=== PATIENT | female | born 1975 | race Caucasian/White ===

== ENCOUNTER → 2016-04-11 | Outpatient (CLI) | payer MEDICARE, MEDICAID ==
[~2016-04-11] MED LIST: ALPR0.25 PO; CHOL20007 PO; FOLI1TAB6 PO; HYDR-3682 PO; LACT10SO PO; MET50T PO; ONDA4TAB5 PO; PANT40TA2 PO; PHYT100T PO; PROP60CA8 PO; TAMO20TA5 PO
[2016-04-11 09:13] LABS: DEFINITIVE VIEW TRANSMISSION
[2016-04-11 09:28] LABS: Hematocrit 24.4 % (36.0-46.0); Hemoglobin 7.8 g/dL (12.2-16.2); Mean Corpuscular Hemoglobin 30.4 pg (28.0-32.0); Mean Corpuscular Hgb Conc. 32.1 g/dL (32.0-36.0); Mean Corpuscular Volume 94.8 fL (80.0-100.0); Mean Platelet Volume 7.4 fL (7.4-10.4); Platelet Count (auto) 306 10^3/uL (140-450); Red Cell Distribution Width 18.7 % (11.6-16.0); White Blood Cell 5.6 10^3/uL (4.4-10.8)
[2016-04-11 09:30] LABS: Partial Thromboplastin Time 30.3 sec (22.64-33.71)
[2016-04-11 09:34] LABS: Metamyelocytes % 0; Myelocytes % 0; Promyelocytes % 0; Reactive Lymphocytes 0
[2016-04-11 09:50] LABS: INR 1.45 (0.9-1.15); Prothrombin Time 14.9 sec (9.37-12.3)
[2016-04-11 10:46] LABS: Burr Cells FEW; Platelet Estimate Adequate; Schistocytes FEW
== END | disposition home or self-care (01) ==
LOC: LAB 09:01
PROVIDERS: ATTEND Internal Medicine Gastroenterology
DX: Z01.812 Encounter for preprocedural laboratory examination (principal)
CPT/HCPCS: 36415; 84702; 85007; 85027; 85610; 85730

== ENCOUNTER → 2016-04-15 | Day surgery (SDC) | payer MEDICARE, MEDICAID ==
[~2016-04-15] VITALS: Ht 162.6 cm; Wt 61.2 kg
[~2016-04-15] MED LIST changes: -ALPR0.25 PO; -FOLI1TAB6 PO; +LIDOCAINE VISCOUS 2% 15ML UD ONE; -MET50T PO; -ONDA4TAB5 PO; +SODIUM CHLORIDE LOCK 10 ML ONE; -TAMO20TA5 PO; +diphenhdrAMINE HCL 50 MG/1 ML VL ONE
[2016-04-15] MEDS: fentaNYL CITRATE 100 MCG/2 ML VL ONE ×2 (09:26→09:30)
[2016-04-15] MEDS: MIDAZOLAM HCL 5 MG/ML-1ML VIAL ONE ×2 (09:26→09:30)
[2016-04-15 10:08] VITALS: BP 121/77
== END | disposition home or self-care (01) ==
LOC: GI 08:31
PROVIDERS: ATTEND Internal Medicine Gastroenterology
DX: K74.60 Unspecified cirrhosis of liver (principal); I85.10 Secondary esophageal varices without bleeding; K76.6 Portal hypertension; K31.89 Other diseases of stomach and duodenum; Z12.4 Encounter for screening for malignant neoplasm of cervix; F10.99 Alcohol use, unspecified with unspecified alcohol-induced disorder
CPT/HCPCS: 43235; J2250

== ENCOUNTER → 2016-06-06 | Day surgery (SDC) | payer MEDICARE, MEDICAID ==
[2016-05-31 10:59] LABS: DEFINITIVE VIEW TRANSMISSION; Hematocrit 24.3 % (36.0-46.0); Hemoglobin 8.3 g/dL (12.2-16.2); Mean Corpuscular Hemoglobin 29.3 pg (28.0-32.0); Mean Corpuscular Hgb Conc. 33.9 g/dL (32.0-36.0); Mean Corpuscular Volume 86.4 fL (80.0-100.0); Mean Platelet Volume 7.4 fL (7.4-10.4); Platelet Count (auto) 275 10^3/uL (140-450); Red Cell Distribution Width 19.7 % (11.6-16.0); White Blood Cell 5.2 10^3/uL (4.4-10.8)
[2016-05-31 11:03] LABS: Partial Thromboplastin Time 30.6 sec (22.64-33.71)
[2016-05-31 11:08] LABS: INR 1.24 (0.9-1.15); Prothrombin Time 13.4 sec (9.37-12.3)
[2016-05-31 11:34] LABS: Metamyelocytes % 0; Myelocytes % 0; Promyelocytes % 0; Reactive Lymphocytes 0
[2016-05-31 14:27] LABS: Platelet Estimate Adequate
[2016-05-31 14:29] LABS: Anisocytosis Slight; Burr Cells FEW; Ovalocytes FEW; Schistocytes FEW; Tear Drop Cells FEW
[~2016-06-06] MED LIST changes: -LIDOCAINE VISCOUS 2% 15ML UD ONE; +MIDAZOLAM HCL 5 MG/ML-1ML VIAL ONE; +fentaNYL CITRATE 100 MCG/2 ML VL ONE
[2016-06-06] MEDS: MIDAZOLAM HCL 5 MG/ML-1ML VIAL ONE ×3 (10:30→10:40)
[2016-06-06] MEDS: fentaNYL CITRATE 100 MCG/2 ML VL ONE ×3 (10:30→10:40)
[2016-06-06 11:50] VITALS: BP 115/76
== END | disposition home or self-care (01) ==
LOC: GI 09:39
PROVIDERS: ATTEND Internal Medicine Gastroenterology
DX: K63.5 Polyp of colon (principal); I86.8 Varicose veins of other specified sites
CPT/HCPCS: 36415; 45380; 45385; 84702; 85007; 85027; 85610; 85730; J2250

== ENCOUNTER 2016-09-13 08:29 | Day surgery (SDC) | payer MEDICARE, MEDICAID ==
[2016-09-10 12:54] LABS: CONDITION Y; DEFINITIVE SEE PRINTOUT; Hematocrit 22.5 % (36.0-46.0); Hemoglobin 8.1 g/dL (12.2-16.2); Mean Corpuscular Hemoglobin 38.4 pg (28.0-32.0); Mean Corpuscular Hgb Conc. 35.9 g/dL (32.0-36.0); Mean Corpuscular Volume 106.8 fL (80.0-100.0); Platelet Count (auto) 163 10^3/uL (140-450); Red Cell Distribution Width 18.5 % (11.6-16.0); SUSPECT SEE PRINTOUT; White Blood Cell 4.8 10^3/uL (4.4-10.8)
[2016-09-10 13:09] LABS: Albumin 3.4 g/dL (3.4-5.0); BUN/Creatinine Ratio 7.1; Calcium 8.3 mg/dL (8.5-10.1); Metamyelocytes % 0; Myelocytes % 0; Promyelocytes % 0; Reactive Lymphocytes 0
[2016-09-10 13:11] LABS: Bilirubin, Total 9.6 mg/dL (0.2-1.0); Total Protein 7.8 g/dL (6.4-8.2)
[2016-09-10 13:24] LABS: INR 1.35 (0.9-1.15)
[2016-09-10 13:41] LABS: Prothrombin Time 14.8 sec (9.37-12.3)
[2016-09-10 14:36] LABS: Anisocytosis Moderate; Hypochromia Moderate; Macrocytosis Slight; Poikilocytosis Slight
[2016-09-10 14:37] LABS: Burr Cells MODERATE
[2016-09-10 14:38] LABS: Platelet Estimate Adequate
[~2016-09-13] VITALS: Ht 162.6 cm; Wt 55.8 kg
[~2016-09-13 08:29] MED LIST changes: -CHOL20007 PO; +FURO20TA3 PO; -LACT10SO PO; +LACT10SO3 PO; -MIDAZOLAM HCL 5 MG/ML-1ML VIAL ONE; -PHYT100T PO; -SODIUM CHLORIDE LOCK 10 ML ONE; -diphenhdrAMINE HCL 50 MG/1 ML VL ONE; -fentaNYL CITRATE 100 MCG/2 ML VL ONE
[2016-09-13] MEDS ORDERED: SODIUM CHLORIDE LOCK 10 ML ONE (09:08)
[2016-09-13] MEDS ORDERED: diphenhdrAMINE HCL 50 MG/1 ML VL ONE (09:09)
[2016-09-13] MEDS: fentaNYL CITRATE 100 MCG/2 ML VL ONE ×3 (10:01→10:09)
[2016-09-13] MEDS: MIDAZOLAM HCL 5 MG/ML-1ML VIAL ONE ×3 (10:01→10:09)
[2016-09-13 10:55] VITALS: BP 139/58
== END 2016-09-13 11:00 | disposition home or self-care (01) ==
LOC: GI 08:29
PROVIDERS: ATTEND Internal Medicine Gastroenterology
DX: Z12.11 Encounter for screening for malignant neoplasm of colon (principal); K64.8 Other hemorrhoids; Z90.11 Acquired absence of right breast and nipple; C50.911 Malignant neoplasm of unspecified site of right female breast; F10.99 Alcohol use, unspecified with unspecified alcohol-induced disorder
CPT/HCPCS: 36415; 80053; 82105; 84702; 85007; 85027; 85610; G0121; J1200; J2250; J3010; J7030

== ENCOUNTER 2017-04-04 16:17 | Inpatient (IN) | payer MEDICARE, MEDICAID ==
[~2017-04-04] VITALS: Ht 162.6 cm; Wt 74.7 kg
[~2017-04-04 16:17] MED LIST changes: +AMOX500C2 PO; -FURO20TA3 PO; -LACT10SO3 PO
[2017-04-04 17:20] LABS: BUN/Creatinine Ratio 17.3; Potassium 4.5 mmol/L (3.5-5.1)
[2017-04-04 17:21] LABS: Albumin 2.8 g/dL (3.4-5.0); Calcium 8.6 mg/dL (8.5-10.1)
[2017-04-04 17:23] LABS: Bilirubin, Total 7.4 mg/dL (0.2-1.0); Total Protein 6.4 g/dL (6.4-8.2)
[2017-04-04 17:27] LABS: White Blood Cell 7.6 10^3/uL (4.4-10.8)
[2017-04-04 17:28] LABS: Hematocrit 14.2 % (36.0-46.0); Mean Corpuscular Hemoglobin 40.8 pg (28.0-32.0); Mean Corpuscular Hgb Conc. 34.4 g/dL (32.0-36.0); Mean Corpuscular Volume 118.5 fL (80.0-100.0); Red Blood Cells 1.19 10^6/uL (4.0-5.20)
[2017-04-04 17:31] LABS: INR 1.17 (0.9-1.15); Prothrombin Time 12.8 sec (9.37-12.3); Red Cell Distribution Width 23.9 % (11.8-14.3)
[2017-04-04 17:36] LABS: Hemoglobin 4.9 g/dL (12.2-16.2)
[2017-04-04 17:37] LABS: Band Neutrophils % (manual) 0
[2017-04-04 17:38] LABS: Basophils % (manual) 0 (0.0-2.0); Blast Cells 0; Myelocytes % 0; Promyelocytes % 0; Reactive Lymphocytes 0
[2017-04-04 17:55] LABS: Eosinophils % (manual) 4 (0-7); Lymphocytes % (manual) 18 (10.0-50.0); Metamyelocytes % 1; Monocytes % (manual) 7 (0-12)
[2017-04-04 17:57] LABS: Platelet Count (auto) 134 10^3/uL (140-450)
[2017-04-04] MEDS ORDERED: LEVOFLOXACIN 500MG 100 ML IV ONE (18:45)
[2017-04-04] MEDS ORDERED: PANTOPRAZOLE 40 MG/10 ML VIAL IV ONE (18:45)
[2017-04-04] MEDS ORDERED: TEMAZEPAM 15 MG CAP PO PRN (18:45)
[2017-04-04] MEDS ORDERED: LORazepam 0.5 MG TAB PO PRN (18:45)
[2017-04-04] MEDS ORDERED: MORPHINE SULFATE 4 MG/ML SYR/VIAL IV PRN (18:45)
[2017-04-04] MEDS ORDERED: NITROGLYCERIN 0.4 MG SL TAB SL PRN (18:45)
[2017-04-04] MEDS: PROMETHAZINE HCL 25 MG/ML 1ML IV PRN (20:08)
[2017-04-04] MEDS: SODIUM CHLORIDE 0.9% 1,000 ML IV SCH (20:46)
[2017-04-04 21:25] VITALS: BP 110/57
[2017-04-04 21:40] VITALS: BP 98/58
[2017-04-04] MEDS: metroNIDAZOLE 500MG/100ML 100 ML IV SCH (22:00)
[2017-04-04 23:13] VITALS: BP 101/59
[2017-04-04 23:50] VITALS: BP 101/59
[2017-04-05] VITALS (11 sets, daily range): BP systolic 101–131; BP diastolic 46–76
[2017-04-05] MEDS ORDERED: diphenhdrAMINE HCL 50 MG/1 ML VL ONE (00:12)
[2017-04-05] MEDS ORDERED: diphenhdrAMINE HCL 50 MG/1 ML VL IV ONE ×2 (00:15→07:45)
[2017-04-05] MEDS: MORPHINE SULFATE 4 MG/ML SYR/VIAL IV PRN ×3 (02:01→22:36)
[2017-04-05] MEDS: PROMETHAZINE HCL 25 MG/ML 1ML IV PRN ×3 (02:02→22:36)
[2017-04-05] MEDS: SODIUM CHLORIDE 0.9% 1,000 ML IV SCH ×3 (02:45→18:44)
[2017-04-05 05:07] LABS: Hematocrit 19.3 % (36.0-46.0)
[2017-04-05 05:18] LABS: Hemoglobin 6.7 g/dL (12.2-16.2)
[2017-04-05] MEDS: metroNIDAZOLE 500MG/100ML 100 ML IV SCH ×3 (07:14→22:13)
[2017-04-05 10:52] LABS: INR 1.23 (0.9-1.15); Partial Thromboplastin Time 29.6 sec (22.64-33.71); Prothrombin Time 13.4 sec (9.37-12.3)
[2017-04-05] MEDS: PANTOPRAZOLE 40 MG/10 ML VIAL IV SCH (11:34)
[2017-04-05 12:19] LABS: Basophils # (auto) 0 uL; Eosinophils # (auto) 0.1 uL; Eosinophils % (auto) 3.7 % (0.0-7.0); Hematocrit 21.7 % (36.0-46.0); Hemoglobin 7.5 g/dL (12.2-16.2); Lymphocytes # (auto) 0.5 uL; Neutrophils # (auto) 2.5 uL
[2017-04-05 12:21] LABS: Basophils % (auto) 1.2 % (0.0-2.0); Lymphocytes % (auto) 14.3 % (10.0-50.0); Mean Corpuscular Hemoglobin 35.7 pg (28.0-32.0); Mean Corpuscular Hgb Conc. 34.6 g/dL (32.0-36.0); Mean Corpuscular Volume 103.1 fL (80.0-100.0); Monocytes # (auto) 0.5 uL; Monocytes % (auto) 12.3 % (0.0-12.0); Neutrophils % (auto) 68.5 % (37.0-80.0); Nucleated Red Blood Cells % 0.1 %; Platelet Count (auto) 97 10^3/uL (140-450); White Blood Cell 3.7 10^3/uL (4.4-10.8)
[2017-04-05] MEDS: LEVOFLOXACIN 500MG 100 ML IV SCH (20:20)
[2017-04-05 21:16] LABS: Basophils # (auto) 0 uL; Basophils % (auto) 0.4 % (0.0-2.0); Eosinophils # (auto) 0.2 uL; Eosinophils % (auto) 4.2 % (0.0-7.0); Hematocrit 30.1 % (36.0-46.0); Hemoglobin 10.6 g/dL (12.2-16.2); Lymphocytes # (auto) 0.3 uL; Lymphocytes % (auto) 6.4 % (10.0-50.0); Mean Corpuscular Hemoglobin 34.3 pg (28.0-32.0); Mean Corpuscular Volume 97.8 fL (80.0-100.0); Monocytes # (auto) 0.6 uL; Monocytes % (auto) 12.1 % (0.0-12.0); Neutrophils # (auto) 3.7 uL; Neutrophils % (auto) 76.9 % (37.0-80.0); Nucleated Red Blood Cells % 0.6 %; Platelet Count (auto) 102 10^3/uL (140-450); Red Blood Cells 3.08 10^6/uL (4.0-5.20); White Blood Cell 4.9 10^3/uL (4.4-10.8)
[2017-04-05 21:24] LABS: Red Cell Distribution Width 20.9 % (11.8-14.3)
[2017-04-06] VITALS (12 sets, daily range): BP systolic 119–139; BP diastolic 73–97
[2017-04-06] MEDS: SODIUM CHLORIDE 0.9% 1,000 ML IV SCH ×3 (02:45→18:45)
[2017-04-06] MEDS: metroNIDAZOLE 500MG/100ML 100 ML IV SCH ×3 (05:42→22:20)
[2017-04-06 06:38] LABS: Hemoglobin 8.9 g/dL (12.2-16.2); Red Blood Cells 2.53 10^6/uL (4.0-5.20); White Blood Cell 3.7 10^3/uL (4.4-10.8)
[2017-04-06 06:41] LABS: Hematocrit 25.1 % (36.0-46.0); Mean Corpuscular Hemoglobin 35.1 pg (28.0-32.0); Mean Corpuscular Hgb Conc. 35.3 g/dL (32.0-36.0); Mean Corpuscular Volume 99.4 fL (80.0-100.0)
[2017-04-06 06:42] LABS: Red Cell Distribution Width 21.8 % (11.8-14.3)
[2017-04-06 06:43] LABS: Platelet Count (auto) 87 10^3/uL (140-450)
[2017-04-06 06:44] LABS: Band Neutrophils % (manual) 0; Basophils % (manual) 0 (0.0-2.0); Blast Cells 0; Metamyelocytes % 0; Myelocytes % 0; Promyelocytes % 0; Reactive Lymphocytes 0
[2017-04-06 08:34] LABS: BUN/Creatinine Ratio 15.9; Calcium 7.2 mg/dL (8.5-10.1); Potassium 4.2 mmol/L (3.5-5.1)
[2017-04-06 09:28] LABS: Eosinophils % (manual) 6 (0-7); Lymphocytes % (manual) 11 (10.0-50.0); Monocytes % (manual) 10 (0-12)
[2017-04-06] MEDS: PROMETHAZINE HCL 25 MG/ML 1ML IV PRN ×2 (09:56→20:42)
[2017-04-06] MEDS: PANTOPRAZOLE 40 MG/10 ML VIAL IV SCH ×2 (09:56→22:20)
[2017-04-06] MEDS: MORPHINE SULFATE 4 MG/ML SYR/VIAL IV PRN ×2 (09:56→20:43)
[2017-04-06] MEDS ORDERED: OCTREOTIDE ACETATE 100 MCG in SODIUM CHL 0.9% 50 ML IV ONE (10:45)
[2017-04-06] MEDS ORDERED: diphenhdrAMINE HCL 50 MG/1 ML VL IV ONE (11:15)
[2017-04-06] MEDS: OCTREOTIDE ACETATE 500 MCG in SODIUM CHL 0.9% 99 ML IV SCH ×2 (11:30→21:50)
[2017-04-06] MEDS: LEVOFLOXACIN 500MG 100 ML IV SCH (19:58)
[2017-04-06] MEDS ORDERED: FURO20TA PO (21:48)
[2017-04-06] MEDS ORDERED: RIFA550T PO (21:48)
[2017-04-06] MEDS ORDERED: SPIR50TA23 PO (21:48)
[2017-04-06] MEDS ORDERED: FER325T PO (21:48)
[2017-04-07] VITALS (48 sets, daily range): BP systolic 103–134; BP diastolic 58–92
[2017-04-07] MEDS: SODIUM CHLORIDE 0.9% 1,000 ML IV SCH ×2 (02:45→10:03)
[2017-04-07 04:01] LABS: Basophils # (auto) 0.1 uL; Eosinophils # (auto) 0.2 uL
[2017-04-07 04:03] LABS: Basophils % (auto) 1.6 % (0.0-2.0); Eosinophils % (auto) 4.1 % (0.0-7.0); Hematocrit 28.2 % (36.0-46.0); Lymphocytes # (auto) 0.8 uL; Lymphocytes % (auto) 20.1 % (10.0-50.0); Mean Corpuscular Hemoglobin 35.7 pg (28.0-32.0); Mean Corpuscular Hgb Conc. 35.4 g/dL (32.0-36.0); Mean Corpuscular Volume 100.7 fL (80.0-100.0); Monocytes # (auto) 0.5 uL; Monocytes % (auto) 13.2 % (0.0-12.0); Neutrophils # (auto) 2.5 uL; Platelet Count (auto) 92 10^3/uL (140-450); White Blood Cell 4.1 10^3/uL (4.4-10.8)
[2017-04-07 04:22] LABS: BUN/Creatinine Ratio 15.2; Calcium 7.8 mg/dL (8.5-10.1)
[2017-04-07 04:28] LABS: Red Cell Distribution Width 22.8 % (11.8-14.3)
[2017-04-07] MEDS: metroNIDAZOLE 500MG/100ML 100 ML IV SCH ×3 (05:49→21:43)
[2017-04-07] MEDS: OCTREOTIDE ACETATE 500 MCG in SODIUM CHL 0.9% 99 ML IV SCH ×2 (06:45→08:30)
[2017-04-07] MEDS ORDERED: SODIUM CHLORIDE LOCK 10 ML ONE (08:08)
[2017-04-07] MEDS ORDERED: LIDOCAINE VISCOUS 2% 15ML UD ONE (08:08)
[2017-04-07] MEDS ORDERED: NALOXONE HCL 0.4 MG/ML VIAL ONE (08:08)
[2017-04-07] MEDS ORDERED: BENZOCAINE (DENTAL) 20 % SPRAY 60ML MT ONE (08:08)
[2017-04-07] MEDS ORDERED: FLUMAZENIL 0.1 MG/ML INJ 10ML MDV IV ONE (08:08)
[2017-04-07] MEDS ORDERED: fentaNYL CITRATE 100 MCG/2 ML VL ONE (08:09)
[2017-04-07] MEDS ORDERED: diphenhdrAMINE HCL 50 MG/1 ML VL ONE (08:09)
[2017-04-07] MEDS ORDERED: MIDAZOLAM HCL 5 MG/ML-1ML VIAL ONE (08:09)
[2017-04-07] MEDS ORDERED: EPINEPHrine HCL 1 MG/10 ML SYRG ONE (08:50)
[2017-04-07] MEDS: PANTOPRAZOLE 40 MG/10 ML VIAL IV SCH (10:03)
[2017-04-07] MEDS: D5W/SOD CHL 0.45% 1,000 ML IV SCH ×2 (10:15→18:02)
[2017-04-07] MEDS ORDERED: LIDOCAINE VISCOUS 2% 15ML UD MT ONE (10:42)
[2017-04-07] MEDS ORDERED: MIDAZOLAM HCL 5 MG/ML-1ML VIAL IV ONE (10:45)
[2017-04-07] MEDS ORDERED: fentaNYL CITRATE 100 MCG/2 ML VL IV ONE (10:45)
[2017-04-07] MEDS ORDERED: diphenhdrAMINE HCL 50 MG/1 ML VL IV ONE (10:47)
[2017-04-07] MEDS: PROMETHAZINE HCL 25 MG/ML 1ML IV PRN ×2 (13:39→20:24)
[2017-04-07] MEDS: MORPHINE SULFATE 4 MG/ML SYR/VIAL IV PRN ×2 (13:43→20:24)
[2017-04-07] MEDS ORDERED: LACT10SO66 PO (15:05)
[2017-04-07] MEDS: diphenhdrAMINE HCL 25 MG CAP PO PRN ×2 (16:15→22:19)
[2017-04-07] MEDS: SPIRONOLACTONE 25 MG TAB PO SCH (18:02)
[2017-04-07] MEDS: FERROUS SULFATE 325 MG TAB PO SCH (18:02)
[2017-04-07] MEDS: LEVOFLOXACIN 500MG 100 ML IV SCH (19:52)
[2017-04-07] MEDS: PROPRANOLOL HCL 20 MG TAB PO SCH (21:43)
[2017-04-07] MEDS: RIFAXIMIN 550 MG TAB PO SCH (21:44)
[2017-04-07] MEDS: LACTULOSE 20Gm/30ML SOLN PO SCH (21:44)
[2017-04-07] MEDS ORDERED: PATIENTS OWN MEDICATION (Rifaximin 550 MG) PO SCH (22:00)
[2017-04-08] VITALS (21 sets, daily range): BP systolic 106–125; BP diastolic 54–84
[2017-04-08] MEDS: D5W/SOD CHL 0.45% 1,000 ML IV SCH (02:15)
[2017-04-08] MEDS: metroNIDAZOLE 500MG/100ML 100 ML IV SCH ×3 (05:45→21:32)
[2017-04-08] MEDS: SPIRONOLACTONE 25 MG TAB PO SCH ×2 (05:45→17:42)
[2017-04-08] MEDS: MORPHINE SULFATE 4 MG/ML SYR/VIAL IV PRN ×3 (05:58→20:19)
[2017-04-08] MEDS: PROMETHAZINE HCL 25 MG/ML 1ML IV PRN ×3 (05:58→20:20)
[2017-04-08] MEDS: FERROUS SULFATE 325 MG TAB PO SCH ×2 (08:00→17:41)
[2017-04-08 08:58] LABS: Basophils # (auto) 0.1 uL; Hemoglobin 10.4 g/dL (12.2-16.2)
[2017-04-08 09:00] LABS: Basophils % (auto) 2.2 % (0.0-2.0); Eosinophils # (auto) 0.2 uL; Eosinophils % (auto) 3.3 % (0.0-7.0); Hematocrit 30.6 % (36.0-46.0); Lymphocytes # (auto) 0.4 uL; Lymphocytes % (auto) 7.9 % (10.0-50.0); Mean Corpuscular Hemoglobin 34.8 pg (28.0-32.0); Mean Corpuscular Hgb Conc. 34.1 g/dL (32.0-36.0); Mean Corpuscular Volume 102.3 fL (80.0-100.0); Monocytes # (auto) 0.7 uL; Neutrophils # (auto) 3.4 uL; Neutrophils % (auto) 72.6 % (37.0-80.0); Nucleated Red Blood Cells % 0.1 %; Platelet Count (auto) 90 10^3/uL (140-450); Red Blood Cells 2.99 10^6/uL (4.0-5.20); White Blood Cell 4.7 10^3/uL (4.4-10.8)
[2017-04-08 09:05] LABS: Red Cell Distribution Width 24.4 % (11.8-14.3)
[2017-04-08 09:22] LABS: Albumin 2.1 g/dL (3.4-5.0); Bilirubin, Total 8.8 mg/dL (0.2-1.0); Calcium 7.5 mg/dL (8.5-10.1); Potassium 4.4 mmol/L (3.5-5.1); Total Protein 5.7 g/dL (6.4-8.2)
[2017-04-08] MEDS: LACTULOSE 20Gm/30ML SOLN PO SCH ×2 (09:51→21:29)
[2017-04-08] MEDS: PROPRANOLOL HCL 20 MG TAB PO SCH ×2 (09:51→21:31)
[2017-04-08] MEDS: PANTOPRAZOLE 40 MG TAB PO SCH (09:51)
[2017-04-08] MEDS: RIFAXIMIN 550 MG TAB PO SCH ×2 (09:51→21:30)
[2017-04-08] MEDS: SODIUM CITR/CITRIC ACID ORAL SOLN 30 ML PO SCH ×3 (11:11→21:32)
[2017-04-08 11:44] LABS: Urine Bacteria FEW /hpf (None Seen); Urine Blood Negative /uL (Negative); Urine Specific Gravity 1.014 (1.001-1.035); Urine WBC 6 /hpf (0 - 5)
[2017-04-08 11:55] LABS: Creatinine, Urine 84 mg/dL (30.0-125.0); Sodium Urine 25 mmol/L (40-220)
[2017-04-08] MEDS: LEVOFLOXACIN 500MG 100 ML IV SCH (20:20)
[2017-04-08] MEDS: diphenhdrAMINE HCL 25 MG CAP PO PRN (21:30)
[2017-04-09] MEDS: metroNIDAZOLE 500MG/100ML 100 ML IV SCH (05:18)
[2017-04-09] MEDS: SPIRONOLACTONE 25 MG TAB PO SCH (05:18)
[2017-04-09] MEDS: MORPHINE SULFATE 4 MG/ML SYR/VIAL IV PRN (05:19)
[2017-04-09] MEDS: PROMETHAZINE HCL 25 MG/ML 1ML IV PRN (05:19)
[2017-04-09 05:32] VITALS: BP 115/70
[2017-04-09] MEDS: SODIUM CITR/CITRIC ACID ORAL SOLN 30 ML PO SCH (05:35)
[2017-04-09 06:00] LABS: White Blood Cell 5.2 10^3/uL (4.4-10.8)
[2017-04-09 06:04] LABS: Hematocrit 27.6 % (36.0-46.0); Hemoglobin 9.5 g/dL (12.2-16.2); Mean Corpuscular Hgb Conc. 34.6 g/dL (32.0-36.0); Mean Corpuscular Volume 101.1 fL (80.0-100.0); Platelet Count (auto) 83 10^3/uL (140-450); Red Blood Cells 2.73 10^6/uL (4.0-5.20)
[2017-04-09 06:07] LABS: BUN/Creatinine Ratio 17.2; Calcium 7.5 mg/dL (8.5-10.1); Phosphorus 2.3 mg/dL (2.5-4.90); Potassium 4.7 mmol/L (3.5-5.1)
[2017-04-09 06:18] LABS: Band Neutrophils % (manual) 0; Basophils % (manual) 0 (0.0-2.0); Blast Cells 0; Eosinophils % (manual) 0 (0-7); Metamyelocytes % 0; Myelocytes % 0; Promyelocytes % 0; Reactive Lymphocytes 0
[2017-04-09 09:00] VITALS: BP 111/66
[2017-04-09] MEDS: FERROUS SULFATE 325 MG TAB PO SCH (09:00)
[2017-04-09 09:06] LABS: Lymphocytes % (manual) 12 (10.0-50.0); Monocytes % (manual) 9 (0-12)
[2017-04-09] MEDS: PROPRANOLOL HCL 20 MG TAB PO SCH (09:19)
[2017-04-09] MEDS: PANTOPRAZOLE 40 MG TAB PO SCH (09:20)
[2017-04-09] MEDS: RIFAXIMIN 550 MG TAB PO SCH (09:20)
[2017-04-09] MEDS: LACTULOSE 20Gm/30ML SOLN PO SCH (09:20)
[2017-04-09] MEDS ORDERED: SODIUM CHL 0.9% IV ONE (11:00)
[2017-04-09] MEDS ORDERED: SODIUM PHOSPHATES IV ONE (11:00)
[2017-04-09 12:43] VITALS: BP 107/71
[2017-04-09 13:00] VITALS: BP 107/71
[2017-04-09] MEDS ORDERED: PRO-STAT 64 30ML PO SCH (18:00)
== END 2017-04-09 13:50 | disposition home or self-care (01) | DRG 377 ==
LOC: EDBD 16:17 → ER 16:17 → TELE 16:18 → ICU WEST 04-06 18:35 → TELE-WESTW 04-08 11:40
PROVIDERS: ADMIT Internal Medicine; ATTEND Internal Medicine
PROC: 30233N1 Transfusion of Nonautologous Red Blood Cells into Peripheral Vein, Percutaneous Approach (ICD-10-PCS; principal; 2017-04-04)
PROC: 0DJ08ZZ Inspection of Upper Intestinal Tract, Via Natural or Artificial Opening Endoscopic (ICD-10-PCS; 2017-04-07)
PROC: 0W9G30Z Drainage of Peritoneal Cavity with Drainage Device, Percutaneous Approach (ICD-10-PCS; 2017-04-07)
DX: K62.5 Hemorrhage of anus and rectum (principal); N17.0 Acute kidney failure with tubular necrosis; Z76.82 Awaiting organ transplant status; E87.4 Mixed disorder of acid-base balance; Z94.4 Liver transplant status; E44.0 Moderate protein-calorie malnutrition; I85.00 Esophageal varices without bleeding; N18.3 Chronic kidney disease, stage 3 (moderate); D59.1 Other autoimmune hemolytic anemias; K76.6 Portal hypertension; K72.90 Hepatic failure, unspecified without coma; K31.89 Other diseases of stomach and duodenum; K70.31 Alcoholic cirrhosis of liver with ascites; I12.9 Hypertensive chronic kidney disease with stage 1 through stage 4 chronic kidney disease, or unspecified chronic kidney disease; E83.39 Other disorders of phosphorus metabolism; K21.9 Gastro-esophageal reflux disease without esophagitis; Z82.3 Family history of stroke; Z82.49 Family history of ischemic heart disease and other diseases of the circulatory system; Z85.3 Personal history of malignant neoplasm of breast; Z86.010 Personal history of colon polyps; Z90.11 Acquired absence of right breast and nipple; Z68.28 Body mass index [BMI] 28.0-28.9, adult
CPT/HCPCS: 10022; 36415; 36430; 36600; 49083; 71045; 74176; 76700; 76942; 80048; 80053; 81001; 82140; 82570; 82805; 83605; 84100; 84300; 84702; 85007; 85014; 85018; 85025; 85027; 85045; 85610; 85730; 86850; 86900; 86901; 86920; 87081; 93005; 96365; 96367; 96375; C9113; J1956; J2250; J3490

== ENCOUNTER 2017-04-26 15:16 | Inpatient (IN) | payer MEDICARE, MEDICAID ==
[~2017-04-26] VITALS: Ht 167.6 cm; Wt 65.4 kg
[~2017-04-26 15:16] MED LIST changes: -AMOX500C2 PO; +FER325T PO; +FURO20TA PO; -HYDR-3682 PO; +LACT10SO66 PO; +RIFA550T PO; +SPIR50TA23 PO
[2017-04-26] MEDS ORDERED: SODIUM CHLORIDE 0.9% 1,000 ML IV ONE (16:26)
[2017-04-26] MEDS ORDERED: LACTULOSE 20Gm/30ML SOLN PO ONE (16:30)
[2017-04-26] MEDS ORDERED: FUROSEMIDE 40 MG/4 ML VIAL IV ONE (16:30)
[2017-04-26] MEDS ORDERED: SPIRONOLACTONE 25 MG TAB PO ONE (16:30)
[2017-04-26 17:32] LABS: BUN/Creatinine Ratio 12.4; Calcium 7.9 mg/dL (8.5-10.1); Magnesium 1.1 mg/dL (1.6-2.6); Potassium 5.2 mmol/L (3.5-5.1)
[2017-04-26 17:33] LABS: INR 1.41 (0.9-1.15); Partial Thromboplastin Time 23.8 sec (22.64-33.71); Prothrombin Time 15.4 sec (9.37-12.3)
[2017-04-26 17:35] LABS: Bilirubin, Total 8.9 mg/dL (0.2-1.0); Total Protein 7.3 g/dL (6.4-8.2)
[2017-04-26 17:47] LABS: Hemoglobin 8.1 g/dL (12.2-16.2)
[2017-04-26 17:49] LABS: Hematocrit 23.3 % (36.0-46.0); Mean Corpuscular Hemoglobin 37.3 pg (28.0-32.0); Mean Corpuscular Hgb Conc. 34.5 g/dL (32.0-36.0); Mean Corpuscular Volume 108.1 fL (80.0-100.0); Platelet Count (auto) 136 10^3/uL (140-450); Red Blood Cells 2.16 10^6/uL (4.0-5.20); White Blood Cell 6.4 10^3/uL (4.4-10.8)
[2017-04-26 17:55] LABS: Red Cell Distribution Width 24.2 % (11.8-14.3)
[2017-04-26 18:00] LABS: Basophils % (manual) 0 (0.0-2.0); Blast Cells 0; Eosinophils % (manual) 0 (0-7); Metamyelocytes % 0; Myelocytes % 0; Promyelocytes % 0; Reactive Lymphocytes 0
[2017-04-26] MEDS ORDERED: MORPHINE SULFATE 4 MG/ML SYR/VIAL IV PRN (18:00)
[2017-04-26] MEDS ORDERED: cefTRIAXone 1GM/10ml IVPUSH 10 ML IV ONE (18:00)
[2017-04-26] MEDS ORDERED: LORazepam 0.5 MG TAB PO PRN (18:00)
[2017-04-26] MEDS ORDERED: NITROGLYCERIN 0.4 MG SL TAB SL PRN (18:00)
[2017-04-26] MEDS ORDERED: SODIUM POLYSTYRENE SULF 15GM/60ML SUSP PO ONE (18:00)
[2017-04-26] MEDS ORDERED: PANTOPRAZOLE 40 MG TAB PO SCH (18:15)
[2017-04-26] MEDS ORDERED: ONDANSETRON HCL 4 MG/2 ML VIAL IV ONE (18:30)
[2017-04-26] MEDS: FERROUS SULFATE 325 MG TAB PO SCH (18:48)
[2017-04-26 19:03] LABS: Band Neutrophils % (manual) 1; Lymphocytes % (manual) 6 (10.0-50.0); Monocytes % (manual) 7 (0-12)
[2017-04-26] MEDS ORDERED: PANTOPRAZOLE 40 MG/10 ML VIAL IV ONE (20:00)
[2017-04-26] MEDS: PROPRANOLOL HCL 20 MG PO SCH (22:00)
[2017-04-26] MEDS: MORPHINE SULFATE 4 MG/ML SYR/VIAL IV PRN (22:30)
[2017-04-27] MEDS: RIFAXIMIN 550 MG TAB PO SCH ×3 (00:03→22:00)
[2017-04-27] MEDS: FUROSEMIDE 40 MG/4 ML VIAL IV SCH ×4 (00:03→22:15)
[2017-04-27 00:45] LABS: Hematocrit 20.6 % (36.0-46.0); Hemoglobin 7.2 g/dL (12.2-16.2)
[2017-04-27 01:53] VITALS: BP 112/74
[2017-04-27] MEDS: MORPHINE SULFATE 4 MG/ML SYR/VIAL IV PRN ×3 (04:45→21:48)
[2017-04-27] MEDS: LACTULOSE 20Gm/30ML SOLN PO SCH ×4 (05:07→17:23)
[2017-04-27 05:44] VITALS: BP 123/78
[2017-04-27] MEDS ORDERED: FUROSEMIDE 40 MG/4 ML VIAL IV SCH (06:00)
[2017-04-27 06:42] LABS: Hemoglobin 7.3 g/dL (12.2-16.2); White Blood Cell 4.8 10^3/uL (4.4-10.8)
[2017-04-27 06:52] LABS: Hematocrit 20.7 % (36.0-46.0); Mean Corpuscular Hemoglobin 38.1 pg (28.0-32.0); Mean Corpuscular Hgb Conc. 35.4 g/dL (32.0-36.0); Mean Corpuscular Volume 107.6 fL (80.0-100.0); Platelet Count (auto) 127 10^3/uL (140-450); Red Blood Cells 1.92 10^6/uL (4.0-5.20)
[2017-04-27 06:57] LABS: Band Neutrophils % (manual) 0; Basophils % (manual) 0 (0.0-2.0); Blast Cells 0; Metamyelocytes % 0; Myelocytes % 0; Promyelocytes % 0; Reactive Lymphocytes 0
[2017-04-27 07:00] LABS: Albumin 2.6 g/dL (3.4-5.0); BUN/Creatinine Ratio 8.8; Bilirubin, Total 8.3 mg/dL (0.2-1.0); Calcium 7.9 mg/dL (8.5-10.1); Potassium 3.7 mmol/L (3.5-5.1); Total Protein 6.7 g/dL (6.4-8.2)
[2017-04-27 07:30] LABS: Cholesterol 324 mg/dL (< 200); HDL Cholesterol 177 mg/dL (40-59); LDL Cholesterol 96 mg/dL (< 100); Triglycerides 143 mg/dL (< 150)
[2017-04-27 08:05] LABS: Eosinophils % (manual) 1 (0-7); Lymphocytes % (manual) 8 (10.0-50.0); Monocytes % (manual) 11 (0-12)
[2017-04-27 08:57] VITALS: BP 116/69
[2017-04-27] MEDS: FERROUS SULFATE 325 MG TAB PO SCH ×2 (09:17→17:22)
[2017-04-27] MEDS: PANTOPRAZOLE 40 MG/10 ML VIAL IV SCH ×2 (09:17→21:47)
[2017-04-27] MEDS: cefTRIAXone 1GM/10ml IVPUSH 10 ML IV SCH (09:18)
[2017-04-27] MEDS: PROPRANOLOL HCL 20 MG PO SCH ×2 (09:19→22:00)
[2017-04-27] MEDS: PROMETHAZINE HCL 25 MG/ML 1ML IV PRN ×2 (09:40→21:49)
[2017-04-27 12:16] LABS: Hemoglobin 7.4 g/dL (12.2-16.2)
[2017-04-27 12:18] LABS: Hematocrit 20.8 % (36.0-46.0)
[2017-04-27 12:46] VITALS: BP 121/72
[2017-04-27 16:57] VITALS: BP 121/75
[2017-04-27 22:00] VITALS: BP 129/76
[2017-04-27] MEDS: TEMAZEPAM 15 MG CAP PO PRN (23:06)
[2017-04-28] VITALS (10 sets, daily range): BP systolic 115–153; BP diastolic 62–80
[2017-04-28] MEDS: LACTULOSE 20Gm/30ML SOLN PO SCH ×4 (05:49→18:35)
[2017-04-28] MEDS: FUROSEMIDE 40 MG/4 ML VIAL IV SCH ×3 (05:49→21:21)
[2017-04-28] MEDS: PROMETHAZINE HCL 25 MG/ML 1ML IV PRN ×3 (05:50→21:22)
[2017-04-28] MEDS: MORPHINE SULFATE 4 MG/ML SYR/VIAL IV PRN ×3 (05:50→21:22)
[2017-04-28 07:05] LABS: Platelet Count (auto) 119 10^3/uL (140-450)
[2017-04-28 07:08] LABS: Hematocrit 19.6 % (36.0-46.0); Mean Corpuscular Hemoglobin 38.7 pg (28.0-32.0); Mean Corpuscular Hgb Conc. 35.9 g/dL (32.0-36.0); Mean Corpuscular Volume 107.9 fL (80.0-100.0); Red Blood Cells 1.82 10^6/uL (4.0-5.20)
[2017-04-28 07:20] LABS: Red Cell Distribution Width 23.2 % (11.8-14.3)
[2017-04-28 07:25] LABS: Band Neutrophils % (manual) 0; Basophils % (manual) 0 (0.0-2.0); Blast Cells 0; Metamyelocytes % 0; Myelocytes % 0; Promyelocytes % 0; Reactive Lymphocytes 0
[2017-04-28 07:27] LABS: Albumin 2.6 g/dL (3.4-5.0); BUN/Creatinine Ratio 8.6; Calcium 7.9 mg/dL (8.5-10.1); Potassium 3.4 mmol/L (3.5-5.1)
[2017-04-28 07:29] LABS: Bilirubin, Total 8.4 mg/dL (0.2-1.0); Total Protein 6.5 g/dL (6.4-8.2)
[2017-04-28 07:41] LABS: Eosinophils % (manual) 2 (0-7); Lymphocytes % (manual) 8 (10.0-50.0); Monocytes % (manual) 5 (0-12)
[2017-04-28] MEDS: cefTRIAXone 1GM/10ml IVPUSH 10 ML IV SCH (09:41)
[2017-04-28] MEDS: FERROUS SULFATE 325 MG TAB PO SCH ×2 (09:41→18:35)
[2017-04-28] MEDS: PROPRANOLOL HCL 20 MG PO SCH ×2 (09:41→21:21)
[2017-04-28] MEDS: PANTOPRAZOLE 40 MG/10 ML VIAL IV SCH ×2 (09:41→21:21)
[2017-04-28] MEDS: RIFAXIMIN 550 MG TAB PO SCH ×2 (10:00→21:20)
[2017-04-28 14:57] LABS: Urine Bacteria NONE SEEN /hpf (None Seen); Urine Blood Negative /uL (Negative); Urine Specific Gravity 1.007 (1.001-1.035); Urine WBC 3 /hpf (0 - 5)
[2017-04-28] MEDS: TEMAZEPAM 15 MG CAP PO PRN (23:08)
[2017-04-29] VITALS (7 sets, daily range): BP systolic 134–148; BP diastolic 65–90
[2017-04-29] MEDS: PROMETHAZINE HCL 25 MG/ML 1ML IV PRN ×2 (03:45→09:51)
[2017-04-29] MEDS: MORPHINE SULFATE 4 MG/ML SYR/VIAL IV PRN ×2 (03:46→09:51)
[2017-04-29] MEDS: LACTULOSE 20Gm/30ML SOLN PO SCH ×4 (06:33→18:00)
[2017-04-29] MEDS: FUROSEMIDE 40 MG/4 ML VIAL IV SCH ×2 (06:34→16:16)
[2017-04-29] MEDS ORDERED: LIDOCAINE VISCOUS 2% 15ML UD ONE (08:15)
[2017-04-29] MEDS ORDERED: SODIUM CHLORIDE LOCK 10 ML ONE (08:15)
[2017-04-29] MEDS ORDERED: MIDAZOLAM HCL 5 MG/ML-1ML VIAL ONE (08:15)
[2017-04-29] MEDS ORDERED: fentaNYL CITRATE 100 MCG/2 ML VL ONE (08:16)
[2017-04-29] MEDS ORDERED: diphenhdrAMINE HCL 50 MG/1 ML VL ONE (08:20)
[2017-04-29 08:30] LABS: Eosinophils # (auto) 0.1 uL
[2017-04-29 08:31] LABS: Basophils # (auto) 0 uL; Eosinophils % (auto) 2.3 % (0.0-7.0); Hematocrit 25.4 % (36.0-46.0); Hemoglobin 8.9 g/dL (12.2-16.2); Lymphocytes # (auto) 1.4 uL; Lymphocytes % (auto) 23.9 % (10.0-50.0); Mean Corpuscular Hemoglobin 35.1 pg (28.0-32.0); Mean Corpuscular Hgb Conc. 35.2 g/dL (32.0-36.0); Mean Corpuscular Volume 99.9 fL (80.0-100.0); Monocytes # (auto) 0.6 uL; Monocytes % (auto) 10.6 % (0.0-12.0); Neutrophils # (auto) 3.6 uL; Neutrophils % (auto) 63.2 % (37.0-80.0); Nucleated Red Blood Cells % 0.2 %; Platelet Count (auto) 100 10^3/uL (140-450); Red Blood Cells 2.54 10^6/uL (4.0-5.20); White Blood Cell 5.7 10^3/uL (4.4-10.8)
[2017-04-29 08:42] LABS: Red Cell Distribution Width 25.9 % (11.8-14.3)
[2017-04-29 08:44] LABS: Albumin 2.6 g/dL (3.4-5.0); BUN/Creatinine Ratio 8.7; Bilirubin, Total 8.3 mg/dL (0.2-1.0); Calcium 7.8 mg/dL (8.5-10.1); Potassium 3.4 mmol/L (3.5-5.1); Total Protein 6.9 g/dL (6.4-8.2)
[2017-04-29] MEDS: cefTRIAXone 1GM/10ml IVPUSH 10 ML IV SCH (09:45)
[2017-04-29] MEDS: PANTOPRAZOLE 40 MG/10 ML VIAL IV SCH (09:45)
[2017-04-29] MEDS: FERROUS SULFATE 325 MG TAB PO SCH ×2 (09:45→18:00)
[2017-04-29] MEDS: RIFAXIMIN 550 MG TAB PO SCH (10:00)
[2017-04-29] MEDS: PROPRANOLOL HCL 20 MG PO SCH (10:00)
[2017-04-29] MEDS ORDERED: PROPRANOLOL HCL 20 MG TAB PO SCH ×2 (14:00)
[2017-04-29] MEDS ORDERED: PANTOPRAZOLE 40 MG TAB PO SCH (22:00)
== END 2017-04-29 13:30 | disposition home or self-care (01) | DRG 432 ==
LOC: ER 15:16 → EDBD 15:16 → TELE 15:17 → TELE-EAST 19:55
PROVIDERS: ADMIT Internal Medicine; ATTEND Family Medicine
PROC: 30233N1 Transfusion of Nonautologous Red Blood Cells into Peripheral Vein, Percutaneous Approach (ICD-10-PCS; principal; 2017-04-28)
PROC: 0W9G3ZZ Drainage of Peritoneal Cavity, Percutaneous Approach (ICD-10-PCS; 2017-04-28)
PROC: 0DJD8ZZ Inspection of Lower Intestinal Tract, Via Natural or Artificial Opening Endoscopic (ICD-10-PCS; 2017-04-29)
DX: K74.60 Unspecified cirrhosis of liver (principal); K85.10 Biliary acute pancreatitis without necrosis or infection; D61.818 Other pancytopenia; K83.1 Obstruction of bile duct; K72.90 Hepatic failure, unspecified without coma; K76.6 Portal hypertension; R18.8 Other ascites; I85.00 Esophageal varices without bleeding; I11.0 Hypertensive heart disease with heart failure; I50.9 Heart failure, unspecified; E83.42 Hypomagnesemia; K80.20 Calculus of gallbladder without cholecystitis without obstruction; D63.8 Anemia in other chronic diseases classified elsewhere; D75.89 Other specified diseases of blood and blood-forming organs; E03.9 Hypothyroidism, unspecified; E78.00 Pure hypercholesterolemia, unspecified; E78.5 Hyperlipidemia, unspecified; K27.9 Peptic ulcer, site unspecified, unspecified as acute or chronic, without hemorrhage or perforation; K31.89 Other diseases of stomach and duodenum; K29.70 Gastritis, unspecified, without bleeding; K76.0 Fatty (change of) liver, not elsewhere classified; Z82.49 Family history of ischemic heart disease and other diseases of the circulatory system; Z85.3 Personal history of malignant neoplasm of breast
CPT/HCPCS: 10022; 36415; 45378; 71045; 74176; 76705; 76942; 80053; 80061; 81001; 82140; 82150; 82270; 83690; 83735; 84443; 85007; 85014; 85018; 85025; 85027; 85045; 85610; 85730; 86850; 86900; 86901; 86920; 87086; 87088; 87186; 93005; 96365; 96375; 96376; C9113; J2250; J2405

== ENCOUNTER 2017-05-17 13:00 | Inpatient (IN) | payer MEDICARE, MEDICAID ==
[2017-05-17] VITALS (8 sets, daily range): BP systolic 113–133; BP diastolic 67–80
[~2017-05-17] VITALS: Ht 162.6 cm; Wt 63.4 kg
[2017-05-17 15:27] LABS: Bilirubin, Total 9.9 mg/dL (0.2-1.0); Calcium 8.5 mg/dL (8.5-10.1); Potassium 4.1 mmol/L (3.5-5.1)
[2017-05-17 15:56] LABS: Mean Corpuscular Volume 114.1 fL (80.0-100.0)
[2017-05-17 15:57] LABS: Mean Corpuscular Hemoglobin 41.8 pg (28.0-32.0); Mean Corpuscular Hgb Conc. 36.7 g/dL (32.0-36.0); Red Blood Cells 1.57 10^6/uL (4.0-5.20)
[2017-05-17] MEDS ORDERED: ONDANSETRON HCL 4 MG/2 ML VIAL IV ONE (16:00)
[2017-05-17] MEDS ORDERED: MORPHINE SULFATE 4 MG/ML SYR/VIAL IV ONE (16:00)
[2017-05-17 16:03] LABS: Red Cell Distribution Width 22.4 % (11.8-14.3)
[2017-05-17 16:04] LABS: Platelet Count (auto) 118 10^3/uL (140-450)
[2017-05-17 16:07] LABS: Hemoglobin 6.6 g/dL (12.2-16.2)
[2017-05-17 16:08] LABS: INR 1.32 (0.9-1.15); Prothrombin Time 14.4 sec (9.37-12.3)
[2017-05-17 16:13] LABS: Band Neutrophils % (manual) 0; Basophils % (manual) 0 (0.0-2.0); Metamyelocytes % 0
[2017-05-17 16:14] LABS: Blast Cells 0; Myelocytes % 0; Promyelocytes % 0; Reactive Lymphocytes 0
[2017-05-17 16:45] LABS: Eosinophils % (manual) 1 (0-7); Lymphocytes % (manual) 6 (10.0-50.0); Monocytes % (manual) 3 (0-12)
[2017-05-17] MEDS ORDERED: SODIUM CHLORIDE 0.9% 1,000 ML IV SCH (18:14)
[2017-05-17] MEDS ORDERED: LORazepam 0.5 MG TAB PO PRN (18:15)
[2017-05-17] MEDS ORDERED: cefTRIAXone 1GM/10ml IVPUSH 10 ML IV ONE (18:15)
[2017-05-17] MEDS ORDERED: MORPHINE SULFATE 4 MG/ML SYR/VIAL IV PRN ×2 (18:15)
[2017-05-17] MEDS ORDERED: NITROGLYCERIN 0.4 MG SL TAB SL PRN (18:15)
[2017-05-17] MEDS ORDERED: PANTOPRAZOLE 40 MG/10 ML VIAL IV ONE (18:15)
[2017-05-17 18:54] LABS: Amylase 41 U/L (25-115); Lipase 523 U/L (73-393)
[2017-05-17] MEDS ORDERED: PHYTONADIONE ORAL Susp 10 mg/10ml PO ONE (19:30)
[2017-05-17] MEDS: metroNIDAZOLE 500MG/100ML 100 ML IV SCH (20:16)
[2017-05-17] MEDS: MORPHINE SULFATE 4 MG/ML SYR/VIAL IV PRN (21:29)
[2017-05-17] MEDS: PROMETHAZINE HCL 25 MG/ML 1ML IV PRN (21:29)
[2017-05-17] MEDS: PANTOPRAZOLE 40 MG/10 ML VIAL IV SCH (22:08)
[2017-05-17 23:27] LABS: Hemoglobin 7.4 g/dL (12.2-16.2)
[2017-05-17 23:29] LABS: Hematocrit 20.4 % (36.0-46.0)
[2017-05-18] VITALS (9 sets, daily range): BP systolic 108–136; BP diastolic 46–89
[2017-05-18] MEDS: TEMAZEPAM 15 MG CAP PO PRN ×2 (00:27→22:25)
[2017-05-18] MEDS: metroNIDAZOLE 500MG/100ML 100 ML IV SCH ×2 (01:57→10:00)
[2017-05-18] MEDS: PROMETHAZINE HCL 25 MG/ML 1ML IV PRN ×3 (05:03→15:40)
[2017-05-18] MEDS: MORPHINE SULFATE 4 MG/ML SYR/VIAL IV PRN ×2 (05:04→15:40)
[2017-05-18 06:56] LABS: Hematocrit 24.8 % (36.0-46.0); Hemoglobin 8.9 g/dL (12.2-16.2)
[2017-05-18] MEDS ORDERED: cefTRIAXone 1GM/10ml IVPUSH 10 ML IV SCH (09:00)
[2017-05-18] MEDS: PANTOPRAZOLE 40 MG/10 ML VIAL IV SCH ×2 (10:19→22:15)
[2017-05-18 12:02] LABS: Urine Bacteria FEW /hpf (None Seen); Urine Blood Negative /uL (Negative); Urine Specific Gravity 1.015 (1.001-1.035); Urine WBC 6 /hpf (0 - 5)
[2017-05-18 12:32] LABS: Hematocrit 25.5 % (36.0-46.0)
[2017-05-18] MEDS: LACTULOSE 20Gm/30ML SOLN PO SCH ×2 (13:57→22:00)
[2017-05-18] MEDS: RIFAXIMIN 550 MG TAB PO SCH ×2 (13:57→22:00)
[2017-05-18] MEDS: PROPRANOLOL HCL 20 MG TAB PO SCH ×2 (13:58→22:17)
[2017-05-19 05:00] VITALS: BP 129/87
[2017-05-19] MEDS: MORPHINE SULFATE 4 MG/ML SYR/VIAL IV PRN ×3 (05:36→16:27)
[2017-05-19] MEDS: PROPRANOLOL HCL 20 MG TAB PO SCH ×2 (05:37→13:52)
[2017-05-19] MEDS: PROMETHAZINE HCL 25 MG/ML 1ML IV PRN ×3 (05:46→16:27)
[2017-05-19 05:58] LABS: INR 1.31 (0.9-1.15); Partial Thromboplastin Time 34.6 sec (22.64-33.71); Prothrombin Time 14.3 sec (9.37-12.3)
[2017-05-19 06:11] LABS: BUN/Creatinine Ratio 13.2; Calcium 8.2 mg/dL (8.5-10.1); Potassium 4.2 mmol/L (3.5-5.1)
[2017-05-19 06:16] LABS: Hemoglobin 9.8 g/dL (12.2-16.2)
[2017-05-19 06:18] LABS: Hematocrit 27.9 % (36.0-46.0); Mean Corpuscular Hemoglobin 36.4 pg (28.0-32.0); Mean Corpuscular Hgb Conc. 35.2 g/dL (32.0-36.0); Mean Corpuscular Volume 103.3 fL (80.0-100.0); Platelet Count (auto) 106 10^3/uL (140-450); White Blood Cell 5.7 10^3/uL (4.4-10.8)
[2017-05-19 06:33] LABS: Red Cell Distribution Width 25.3 % (11.8-14.3)
[2017-05-19 06:35] LABS: Band Neutrophils % (manual) 0; Blast Cells 0; Myelocytes % 0; Promyelocytes % 0; Reactive Lymphocytes 0
[2017-05-19 06:40] LABS: Basophils % (manual) 1 (0.0-2.0); Eosinophils % (manual) 3 (0-7); Lymphocytes % (manual) 9 (10.0-50.0); Metamyelocytes % 1; Monocytes % (manual) 5 (0-12)
[2017-05-19 09:11] VITALS: BP 120/78
[2017-05-19] MEDS: PANTOPRAZOLE 40 MG/10 ML VIAL IV SCH (12:13)
[2017-05-19] MEDS: LACTULOSE 20Gm/30ML SOLN PO SCH (12:13)
[2017-05-19] MEDS: RIFAXIMIN 550 MG TAB PO SCH (12:25)
[2017-05-19 13:00] VITALS: BP 122/78
[2017-05-19] MEDS ORDERED: ALBUMIN 25% 100 ML IV ONE (13:15)
[2017-05-19 14:10] VITALS: BP 122/78
[2017-05-19 14:13] VITALS: BP 122/78
[2017-05-19 17:03] VITALS: BP 127/84
== END 2017-05-19 17:20 | disposition home or self-care (01) | DRG 433 ==
LOC: ER 13:00 → EDBD 13:00 → OVERFLOW 13:01 → DOU IN ICU 23:16 → TELE-CENTR 05-18 14:54
PROVIDERS: ADMIT Internal Medicine; ATTEND Internal Medicine
PROC: 30233N1 Transfusion of Nonautologous Red Blood Cells into Peripheral Vein, Percutaneous Approach (ICD-10-PCS; principal; 2017-05-17)
PROC: 0W9G3ZZ Drainage of Peritoneal Cavity, Percutaneous Approach (ICD-10-PCS; 2017-05-19)
DX: K70.31 Alcoholic cirrhosis of liver with ascites (principal); D68.9 Coagulation defect, unspecified; K70.40 Alcoholic hepatic failure without coma; Z76.82 Awaiting organ transplant status; D69.59 Other secondary thrombocytopenia; D58.9 Hereditary hemolytic anemia, unspecified; E83.42 Hypomagnesemia; K76.6 Portal hypertension; I85.10 Secondary esophageal varices without bleeding; K92.2 Gastrointestinal hemorrhage, unspecified; K80.20 Calculus of gallbladder without cholecystitis without obstruction; I50.9 Heart failure, unspecified; E78.5 Hyperlipidemia, unspecified; F32.9 Major depressive disorder, single episode, unspecified; F41.9 Anxiety disorder, unspecified; I11.0 Hypertensive heart disease with heart failure; K31.89 Other diseases of stomach and duodenum; Z82.49 Family history of ischemic heart disease and other diseases of the circulatory system; Z85.3 Personal history of malignant neoplasm of breast; Z90.11 Acquired absence of right breast and nipple; Z90.710 Acquired absence of both cervix and uterus; Z79.899 Other long term (current) drug therapy
CPT/HCPCS: 10022; 36415; 36430; 49083; 71045; 76700; 76942; 80048; 80053; 81001; 82140; 82150; 83690; 83735; 85007; 85014; 85018; 85027; 85045; 85610; 85730; 86850; 86900; 86901; 86920; 87081; 87086; 87088; 87186; 93005; 94761; 96374; 96375; C1729; C9113; J2405; J3490; P9047

== ENCOUNTER 2017-07-22 13:47 | Inpatient (IN) | payer MEDICARE, MEDICAID ==
[2017-07-22] VITALS (7 sets, daily range): BP systolic 123–157; BP diastolic 70–83
[~2017-07-22] VITALS: Ht 162.6 cm; Wt 65.2 kg
[2017-07-22 14:39] LABS: Hematocrit 18.4 % (36.0-46.0); Mean Corpuscular Hemoglobin 42.9 pg (28.0-32.0); Mean Corpuscular Hgb Conc. 35.5 g/dL (32.0-36.0); Mean Corpuscular Volume 120.8 fL (80.0-100.0); Platelet Count (auto) 91 10^3/uL (140-450); Red Blood Cells 1.52 10^6/uL (4.0-5.20); Red Cell Distribution Width 18.1 % (11.8-14.3); White Blood Cell 7.9 10^3/uL (4.4-10.8)
[2017-07-22 14:41] LABS: INR 1.33 (0.9-1.15)
[2017-07-22 14:42] LABS: Albumin 3.2 g/dL (3.4-5.0); Anion Gap 11 (5-15); Blood Urea Nitrogen 24 mg/dL (7-18); Calcium 8.6 mg/dL (8.5-10.1); Carbon Dioxide 18 mmol/L (21-32); Chloride 109 mmol/L (98-107); GFR African American 82 mL/min; GFR Non-African American 68 mL/min; Glucose 78 mg/dL (74-106); Potassium 4.9 mmol/L (3.5-5.1); Sodium 138 mmol/L (136-145)
[2017-07-22 14:47] LABS: Alanine Aminotransferase 39 U/L (13-56); Alkaline Phosphatase 188 U/L (45-117); Aspartate Aminotransferase 135 U/L (15-37); Bilirubin, Total 11.7 mg/dL (0.2-1.0); Total Protein 7.5 g/dL (6.4-8.2)
[2017-07-22 14:53] LABS: Hemoglobin 6.5 g/dL (12.2-16.2)
[2017-07-22 14:55] LABS: Band Neutrophils % (manual) 0; Basophils % (manual) 0 (0.0-2.0); Blast Cells 0; Metamyelocytes % 0; Myelocytes % 0; Promyelocytes % 0; Reactive Lymphocytes 0
[2017-07-22] MEDS ORDERED: MORPHINE SULFATE 4 MG/ML SYR/VIAL IV PRN ×2 (15:45)
[2017-07-22] MEDS ORDERED: ONDANSETRON HCL 4 MG/2 ML VIAL IV PRN (15:45)
[2017-07-22] MEDS ORDERED: NITROGLYCERIN 0.4 MG SL TAB SL PRN (15:45)
[2017-07-22] MEDS ORDERED: TEMAZEPAM 15 MG CAP PO PRN (15:45)
[2017-07-22] MEDS ORDERED: ACETAMINOPHEN 325 MG TAB PO PRN (15:45)
[2017-07-22] MEDS ORDERED: DOCUSATE SOD 100 MG CAP PO PRN (15:45)
[2017-07-22 15:54] LABS: Eosinophils % (manual) 4 (0-7); Lymphocytes % (manual) 5 (10.0-50.0); Monocytes % (manual) 6 (0-12)
[2017-07-22] MEDS: SODIUM CHLORIDE 0.9% 1,000 ML IV SCH ×2 (15:58→17:22)
[2017-07-22] MEDS ORDERED: MORPHINE SULFATE 8mg/ml INJ SDV IV PRN (16:30)
[2017-07-22] MEDS: LIDOCAINE 1% (LOCAL ANESTH.) PF 5ml SDV IJ ONE ×2 (17:15→17:22)
[2017-07-22] MEDS: MORPHINE SULFATE 8mg/ml INJ SDV IV PRN ×2 (17:22→21:40)
[2017-07-22] MEDS ORDERED: PROMETHAZINE HCL 25 MG/ML 1ML ONE (17:23)
[2017-07-22] MEDS ORDERED: LIDOCAINE 1% HCL (LOCAL ANESTH.) INJ 20ML MDV ONE (17:42)
[2017-07-22] MEDS: PROMETHAZINE HCL 25 MG/ML 1ML IV PRN ×2 (17:47→21:39)
[2017-07-22] MEDS: BOOST PLUS 8 ounce PO SCH (18:00)
[2017-07-22] MEDS: SPIRONOLACTONE 25 MG TAB PO SCH (19:04)
[2017-07-22] MEDS: LACTULOSE 20Gm/30ML SOLN PO SCH (21:38)
[2017-07-22] MEDS: PROPRANOLOL HCL 20 MG TAB PO SCH (21:38)
[2017-07-22] MEDS: FAMOTIDINE 20 MG TAB PO SCH (21:39)
[2017-07-22] MEDS: RIFAXIMIN 550 MG TAB PO SCH (21:53)
[2017-07-22] MEDS ORDERED: PANTOPRAZOLE 40 MG TAB PO SCH (22:00)
[2017-07-23] VITALS (8 sets, daily range): BP systolic 120–164; BP diastolic 71–97
[2017-07-23] MEDS: HYDROcodone-ACET 5/325MG TAB PO PRN ×3 (00:51→19:46)
[2017-07-23] MEDS: MORPHINE SULFATE 8mg/ml INJ SDV IV PRN ×2 (03:11→20:41)
[2017-07-23] MEDS: PROMETHAZINE HCL 25 MG/ML 1ML IV PRN (03:12)
[2017-07-23] MEDS: SPIRONOLACTONE 25 MG TAB PO SCH ×2 (05:28→19:45)
[2017-07-23 06:58] LABS: Red Blood Cells 2.15 10^6/uL (4.0-5.20)
[2017-07-23 07:00] LABS: Potassium 5.1 mmol/L (3.5-5.1)
[2017-07-23 07:02] LABS: Hematocrit 23.1 % (36.0-46.0); Hemoglobin 8.2 g/dL (12.2-16.2); Mean Corpuscular Hgb Conc. 35.4 g/dL (32.0-36.0); Mean Corpuscular Volume 107.3 fL (80.0-100.0); Platelet Count (auto) 86 10^3/uL (140-450)
[2017-07-23] MEDS: LACTULOSE 20Gm/30ML SOLN PO SCH ×3 (07:02→21:43)
[2017-07-23 07:16] LABS: BUN/Creatinine Ratio 23.5; Bilirubin, Total 12.9 mg/dL (0.2-1.0); Calcium 8.7 mg/dL (8.5-10.1); Total Protein 7.2 g/dL (6.4-8.2)
[2017-07-23 07:31] LABS: Red Cell Distribution Width 27.6 % (11.8-14.3)
[2017-07-23 07:32] LABS: Band Neutrophils % (manual) 0; Basophils % (manual) 0 (0.0-2.0); Blast Cells 0; Metamyelocytes % 0; Myelocytes % 0; Promyelocytes % 0; Reactive Lymphocytes 0
[2017-07-23] MEDS: BOOST PLUS 8 ounce PO SCH ×3 (08:00→20:06)
[2017-07-23] MEDS: RIFAXIMIN 550 MG TAB PO SCH ×2 (10:00→21:43)
[2017-07-23] MEDS ORDERED: FUROSEMIDE 40 MG TAB PO SCH (10:00)
[2017-07-23] MEDS: PROPRANOLOL HCL 20 MG TAB PO SCH ×2 (11:44→21:43)
[2017-07-23] MEDS: FAMOTIDINE 20 MG TAB PO SCH ×2 (11:44→21:42)
[2017-07-23] MEDS: MULTIPLE VITAMIN TAB PO SCH (11:45)
[2017-07-23 13:58] LABS: Eosinophils % (manual) 2 (0-7); Lymphocytes % (manual) 8 (10.0-50.0); Monocytes % (manual) 4 (0-12)
[2017-07-23] MEDS: SODIUM CHLORIDE 0.9% 1,000 ML IV SCH (20:06)
[2017-07-23] MEDS ORDERED: HYDR-3682 PO (20:14)
[2017-07-23] MEDS ORDERED: hydrOXYzine HCL 10 MG TAB PO PRN (21:00)
[2017-07-24] MEDS: MORPHINE SULFATE 8mg/ml INJ SDV IV PRN (02:13)
[2017-07-24] MEDS: SODIUM CHLORIDE 0.9% 1,000 ML IV SCH (02:13)
[2017-07-24 05:03] VITALS: BP 144/77
[2017-07-24] MEDS: SPIRONOLACTONE 25 MG TAB PO SCH ×2 (05:23→10:56)
[2017-07-24] MEDS: LACTULOSE 20Gm/30ML SOLN PO SCH ×3 (05:24→18:00)
[2017-07-24 05:42] LABS: Hemoglobin 8.6 g/dL (12.2-16.2)
[2017-07-24 05:46] LABS: Hematocrit 23.7 % (36.0-46.0); Mean Corpuscular Hemoglobin 38.9 pg (28.0-32.0); Mean Corpuscular Hgb Conc. 36.1 g/dL (32.0-36.0); Mean Corpuscular Volume 107.7 fL (80.0-100.0); Platelet Count (auto) 89 10^3/uL (140-450); White Blood Cell 8.5 10^3/uL (4.4-10.8)
[2017-07-24 05:57] LABS: Red Cell Distribution Width 27.6 % (11.8-14.3)
[2017-07-24 05:58] LABS: Band Neutrophils % (manual) 0; Blast Cells 0; Metamyelocytes % 0; Myelocytes % 0; Promyelocytes % 0; Reactive Lymphocytes 0
[2017-07-24 06:05] LABS: BUN/Creatinine Ratio 26.4; Calcium 8.8 mg/dL (8.5-10.1); Magnesium 1.6 mg/dL (1.6-2.6); Potassium 5.3 mmol/L (3.5-5.1)
[2017-07-24 06:07] LABS: Bilirubin, Total 11.2 mg/dL (0.2-1.0); Total Protein 7.3 g/dL (6.4-8.2)
[2017-07-24 06:16] LABS: Basophils % (manual) 1 (0.0-2.0); Eosinophils % (manual) 4 (0-7); Lymphocytes % (manual) 6 (10.0-50.0); Monocytes % (manual) 9 (0-12)
[2017-07-24] MEDS: HYDROcodone-ACET 5/325MG TAB PO PRN (06:49)
[2017-07-24] MEDS: BOOST PLUS 8 ounce PO SCH ×3 (08:00→18:00)
[2017-07-24 09:00] VITALS: BP 119/75
[2017-07-24] MEDS ORDERED: FUROSEMIDE 40 MG TAB PO SCH (10:00)
[2017-07-24] MEDS: FAMOTIDINE 20 MG TAB PO SCH (10:55)
[2017-07-24] MEDS: PROPRANOLOL HCL 20 MG TAB PO SCH (10:55)
[2017-07-24] MEDS: MULTIPLE VITAMIN TAB PO SCH (10:56)
[2017-07-24] MEDS: RIFAXIMIN 550 MG TAB PO SCH (11:04)
[2017-07-24 11:52] VITALS: BP 119/75
[2017-07-24 13:00] VITALS: BP 124/72
[2017-07-24] MEDS ORDERED: SODIUM POLYSTYRENE SULF 15GM/60ML SUSP PO ONE (14:15)
[2017-07-24 17:00] VITALS: BP 112/69
== END 2017-07-24 17:00 | disposition hospice, home (50) | DRG 432 ==
LOC: EDBD 13:47 → ER 13:52 → TELE 13:53 → TELE-WESTW 20:50 → WEST WING 22:15 → TELE-WESTW 22:42 → WEST WING 22:49 → TELE-WESTW 22:50
PROVIDERS: ADMIT Internal Medicine; ATTEND Internal Medicine
PROC: 30233N1 Transfusion of Nonautologous Red Blood Cells into Peripheral Vein, Percutaneous Approach (ICD-10-PCS; principal; 2017-07-22)
PROC: 0W9G3ZZ Drainage of Peritoneal Cavity, Percutaneous Approach (ICD-10-PCS; 2017-07-22)
DX: K70.31 Alcoholic cirrhosis of liver with ascites (principal); E43 Unspecified severe protein-calorie malnutrition; D68.9 Coagulation defect, unspecified; D69.59 Other secondary thrombocytopenia; K76.6 Portal hypertension; D64.9 Anemia, unspecified; J98.11 Atelectasis; E44.0 Moderate protein-calorie malnutrition; K72.90 Hepatic failure, unspecified without coma; I12.9 Hypertensive chronic kidney disease with stage 1 through stage 4 chronic kidney disease, or unspecified chronic kidney disease; N18.2 Chronic kidney disease, stage 2 (mild); E78.5 Hyperlipidemia, unspecified; F32.9 Major depressive disorder, single episode, unspecified; F41.9 Anxiety disorder, unspecified; Z82.49 Family history of ischemic heart disease and other diseases of the circulatory system; Z85.3 Personal history of malignant neoplasm of breast; Z79.899 Other long term (current) drug therapy; Z68.24 Body mass index [BMI] 24.0-24.9, adult
CPT/HCPCS: 36415; 36430; 49083; 71045; 76942; 80053; 82140; 83540; 83550; 83735; 84132; 84484; 85007; 85027; 85610; 86850; 86900; 86901; 86920; 87081; 96360; J2001; J2270; J2405

== ENCOUNTER 2017-09-20 11:28 | Inpatient (IN) | payer MEDICARE, MEDICAID ==
[~2017-09-20] VITALS: Ht 160 cm; Wt 59.7 kg
[~2017-09-20 11:28] MED LIST changes: +HYDR-3682 PO; +PROP60CA34 PO; -PROP60CA8 PO; -SPIR50TA23 PO; +SPIR50TA5 PO
[2017-09-20 12:25] LABS: Alanine Aminotransferase 32 U/L (13-56); Albumin 2.9 g/dL (3.4-5.0); Anion Gap 12 (5-15); BUN/Creatinine Ratio 16.2; Blood Urea Nitrogen 23 mg/dL (7-18); Calcium 8.2 mg/dL (8.5-10.1); Carbon Dioxide 19 mmol/L (21-32); Chloride 96 mmol/L (98-107); GFR African American 52 mL/min; GFR Non-African American 43 mL/min; Glucose 89 mg/dL (74-106); Magnesium 1.6 mg/dL (1.6-2.6); Sodium 127 mmol/L (136-145)
[2017-09-20 12:30] LABS: Alkaline Phosphatase 130 U/L (45-117); Aspartate Aminotransferase 96 U/L (15-37); Bilirubin, Total 12.7 mg/dL (0.2-1.0); Hematocrit 15.3 % (36.0-46.0); Mean Corpuscular Hemoglobin 43.6 pg (28.0-32.0); Mean Corpuscular Volume 124.3 fL (80.0-100.0); Red Blood Cells 1.23 10^6/uL (4.0-5.20); Total Protein 6.8 g/dL (6.4-8.2); White Blood Cell 6.6 10^3/uL (4.4-10.8)
[2017-09-20 12:31] LABS: Platelet Count (auto) 74 10^3/uL (140-450); Red Cell Distribution Width 15.8 % (11.8-14.3)
[2017-09-20 12:35] LABS: Hemoglobin 5.4 g/dL (12.2-16.2)
[2017-09-20 12:39] LABS: Potassium 5.8 mmol/L (3.5-5.1)
[2017-09-20 13:10] LABS: Basophils % (manual) 0 (0.0-2.0); Blast Cells 0; Eosinophils % (manual) 0 (0-7); Metamyelocytes % 0; Myelocytes % 0; Promyelocytes % 0; Reactive Lymphocytes 0
[2017-09-20] MEDS ORDERED: InsuLIN REG 1unit/0.01ml Soln (100units/ml) IV ONE (13:15)
[2017-09-20] MEDS ORDERED: CALCIUM GLUC 4.65meq/50ml D5AE 50 ML IV ONE (13:15)
[2017-09-20] MEDS ORDERED: ONDANSETRON HCL 4 MG/2 ML VIAL IV ONE (13:15)
[2017-09-20] MEDS ORDERED: DEXTROSE (50%) 50ML SYRG IV ONE (13:15)
[2017-09-20] MEDS ORDERED: SODIUM POLYSTYRENE SULF 15GM/60ML SUSP PO ONE (13:15)
[2017-09-20] MEDS ORDERED: SODIUM BICARBONATE 8.4 % INJ 50ML VIAL IV ONE (13:15)
[2017-09-20] MEDS ORDERED: LACTULOSE 20Gm/30ML SOLN PO ONE (13:15)
[2017-09-20 13:34] LABS: Band Neutrophils % (manual) 2; Lymphocytes % (manual) 5 (10.0-50.0); Monocytes % (manual) 4 (0-12)
[2017-09-20 13:55] LABS: INR 1.32 (0.9-1.15); Partial Thromboplastin Time 36.5 sec (23.78-33.04); Prothrombin Time 13.9 sec (9.27-12.13)
[2017-09-20] MEDS ORDERED: fentaNYL CITRATE 5 ML ONE (15:01)
[2017-09-20] MEDS ORDERED: fentaNYL CITRATE 100 MCG/2 ML VL IV ONE (15:30)
[2017-09-20 21:38] VITALS: BP 123/58
[2017-09-20 21:53] VITALS: BP 127/59
[2017-09-20 23:00] VITALS: BP 119/58
[2017-09-20 23:24] VITALS: BP 125/58
[2017-09-20 23:39] VITALS: BP 121/69
[2017-09-21] VITALS (10 sets, daily range): BP systolic 98–125; BP diastolic 49–67
[2017-09-21] MEDS ORDERED: PANTOPRAZOLE 40 MG/10 ML VIAL IV ONE (01:00)
[2017-09-21] MEDS: SODIUM CHLORIDE 0.9% 1,000 ML IV SCH ×2 (01:35→14:55)
[2017-09-21 01:44] LABS: Hematocrit 20.7 % (36.0-46.0); Hemoglobin 7.3 g/dL (12.2-16.2)
[2017-09-21] MEDS: ONDANSETRON HCL 4 MG/2 ML VIAL IV PRN ×5 (01:57→22:08)
[2017-09-21] MEDS: MORPHINE SULF INJ 2 MG/ML SYRINGE 1ML IV PRN ×5 (01:57→22:09)
[2017-09-21] MEDS ORDERED: cefTRIAXone 1GM/10ml IVPUSH 10 ML IV ONE (02:00)
[2017-09-21] MEDS: LACTULOSE 20Gm/30ML SOLN PO SCH ×4 (02:02→18:44)
[2017-09-21] MEDS ORDERED: ZOLPIDEM TARTRATE 5 MG TAB PO ONE (04:00)
[2017-09-21 06:41] LABS: Platelet Count (auto) 68 10^3/uL (140-450); White Blood Cell 5.7 10^3/uL (4.4-10.8)
[2017-09-21 06:43] LABS: Hematocrit 19.1 % (36.0-46.0); Mean Corpuscular Hemoglobin 37.2 pg (28.0-32.0); Mean Corpuscular Hgb Conc. 35.9 g/dL (32.0-36.0); Mean Corpuscular Volume 103.4 fL (80.0-100.0); Red Blood Cells 1.85 10^6/uL (4.0-5.20)
[2017-09-21 06:45] LABS: Red Cell Distribution Width 31.1 % (11.8-14.3)
[2017-09-21 06:48] LABS: Hemoglobin 6.9 g/dL (12.2-16.2)
[2017-09-21 06:49] LABS: Basophils % (manual) 0 (0.0-2.0); Blast Cells 0; Metamyelocytes % 0; Myelocytes % 0; Promyelocytes % 0; Reactive Lymphocytes 0
[2017-09-21 06:58] LABS: Albumin 2.6 g/dL (3.4-5.0); BUN/Creatinine Ratio 19.7; Calcium 8.2 mg/dL (8.5-10.1); Potassium 4.7 mmol/L (3.5-5.1)
[2017-09-21 07:01] LABS: Bilirubin, Total 11.1 mg/dL (0.2-1.0); Total Protein 6.2 g/dL (6.4-8.2)
[2017-09-21] MEDS ORDERED: FOLI1TAB6 PO (09:05)
[2017-09-21] MEDS ORDERED: FURO40TA4 PO (09:05)
[2017-09-21] MEDS ORDERED: LORA1TAB12 PO (09:05)
[2017-09-21] MEDS ORDERED: MORP15TA SL (09:05)
[2017-09-21] MEDS ORDERED: ONDA4TAB5 PO (09:05)
[2017-09-21] MEDS ORDERED: HYDR-4683 PO (09:05)
[2017-09-21] MEDS ORDERED: RIFAXIMIN 550 MG TAB PO ONE (11:00)
[2017-09-21] MEDS ORDERED: SPIRONOLACTONE 25 MG TAB PO ONE (11:00)
[2017-09-21] MEDS ORDERED: FUROSEMIDE 20 MG TAB PO ONE (11:00)
[2017-09-21] MEDS: LORazepam 0.5 MG TAB PO PRN (12:32)
[2017-09-21] MEDS: Ensure Enlive Strawberry 8oz Bottle PO SCH ×3 (12:33→22:00)
[2017-09-21 12:41] LABS: Band Neutrophils % (manual) 1; Eosinophils % (manual) 2 (0-7); Lymphocytes % (manual) 7 (10.0-50.0); Monocytes % (manual) 2 (0-12)
[2017-09-21 14:18] LABS: Hemoglobin 8.9 g/dL (12.2-16.2)
[2017-09-21 14:20] LABS: Hematocrit 24.5 % (36.0-46.0)
[2017-09-21] MEDS: FERROUS SULFATE 325 MG TAB PO SCH (18:44)
[2017-09-21] MEDS: SPIRONOLACTONE 25 MG TAB PO SCH (18:45)
[2017-09-21 19:59] LABS: Hemoglobin 8.4 g/dL (12.2-16.2)
[2017-09-21 20:01] LABS: Hematocrit 23.2 % (36.0-46.0)
[2017-09-21] MEDS ORDERED: PANTOPRAZOLE 40 MG/10 ML VIAL IV SCH (22:00)
[2017-09-21] MEDS: RIFAXIMIN 550 MG TAB PO SCH (22:08)
[2017-09-21] MEDS: cefTRIAXone 1GM/10ml IVPUSH 10 ML IV SCH (22:09)
[2017-09-22] VITALS (10 sets, daily range): BP systolic 116–131; BP diastolic 63–77
[2017-09-22] MEDS: LORazepam 0.5 MG TAB PO PRN (00:21)
[2017-09-22] MEDS: LACTULOSE 20Gm/30ML SOLN PO SCH ×4 (00:21→18:00)
[2017-09-22 02:02] LABS: Urine Bacteria FEW /hpf (None Seen); Urine Blood TRACE /uL (Negative); Urine Specific Gravity 1.013 (1.001-1.035); Urine WBC 13 /hpf (0 - 5)
[2017-09-22] MEDS: HYDROcodone-ACET 5/325MG TAB PO PRN (05:41)
[2017-09-22] MEDS: SPIRONOLACTONE 25 MG TAB PO SCH ×2 (05:41→18:00)
[2017-09-22] MEDS: Ensure Enlive Strawberry 8oz Bottle PO SCH ×4 (06:00→23:34)
[2017-09-22 06:08] LABS: Hemoglobin 7.8 g/dL (12.2-16.2)
[2017-09-22 06:10] LABS: Hematocrit 21.8 % (36.0-46.0); Mean Corpuscular Hemoglobin 36.9 pg (28.0-32.0); Mean Corpuscular Hgb Conc. 35.7 g/dL (32.0-36.0); Mean Corpuscular Volume 103.3 fL (80.0-100.0); Platelet Count (auto) 72 10^3/uL (140-450); Red Blood Cells 2.11 10^6/uL (4.0-5.20); White Blood Cell 5.9 10^3/uL (4.4-10.8)
[2017-09-22 06:16] LABS: Albumin 2.7 g/dL (3.4-5.0); BUN/Creatinine Ratio 17.3; Potassium 4.6 mmol/L (3.5-5.1)
[2017-09-22 06:17] LABS: Red Cell Distribution Width 29.5 % (11.8-14.3)
[2017-09-22 06:19] LABS: Bilirubin, Total 8.4 mg/dL (0.2-1.0); Total Protein 6.4 g/dL (6.4-8.2)
[2017-09-22] MEDS: SODIUM CHLORIDE 0.9% 1,000 ML IV SCH (07:35)
[2017-09-22] MEDS: FERROUS SULFATE 325 MG TAB PO SCH ×2 (08:00→18:35)
[2017-09-22 08:18] LABS: Band Neutrophils % (manual) 0; Basophils % (manual) 0 (0.0-2.0); Blast Cells 0; Eosinophils % (manual) 1 (0-7); Lymphocytes % (manual) 7 (10.0-50.0); Metamyelocytes % 0; Monocytes % (manual) 4 (0-12); Myelocytes % 0; Promyelocytes % 0; Reactive Lymphocytes 0
[2017-09-22] MEDS ORDERED: MORPHINE SULF INJ 2 MG/ML SYRINGE 1ML ONE (10:26)
[2017-09-22] MEDS: FUROSEMIDE 20 MG TAB PO SCH (10:34)
[2017-09-22] MEDS: MORPHINE SULF INJ 2 MG/ML SYRINGE 1ML IV PRN ×3 (10:36→22:46)
[2017-09-22] MEDS: RIFAXIMIN 550 MG TAB PO SCH ×2 (10:56→23:36)
[2017-09-22 10:59] LABS: Hemoglobin 7.6 g/dL (12.2-16.2)
[2017-09-22 11:01] LABS: Hematocrit 21.5 % (36.0-46.0)
[2017-09-22] MEDS ORDERED: FUROSEMIDE 40 MG/4 ML VIAL IV ONE (16:30)
[2017-09-22] MEDS: hydrOXYzine 25 MG TAB or CAP PO PRN (16:59)
[2017-09-22] MEDS: PANTOPRAZOLE 40 MG/10 ML VIAL IV SCH (23:33)
[2017-09-22] MEDS: cefTRIAXone 1GM/10ml IVPUSH 10 ML IV SCH (23:34)
[2017-09-22] MEDS: PROPRANOLOL HCL 20 MG TAB PO SCH (23:35)
[2017-09-23 01:36] LABS: Alcohol, Urine < 3.0 mg/dL (0-5); Amphetamine Screen, Urine NEGATIVE (NEGATIVE); Barbiturate Scree,Urine NEGATIVE (NEGATIVE); Benzodiazephine Screen, Urine NEGATIVE (NEGATIVE); Cannabinoid Screen, Urine NEGATIVE (NEGATIVE); Cocaine Screen, Urine NEGATIVE (NEGATIVE); Opiate Scree,Urine POSITIVE (NEGATIVE); Phencyclidine Screen, Urine NEGATIVE (NEGATIVE)
[2017-09-23 05:18] VITALS: BP 131/67
[2017-09-23] MEDS: SPIRONOLACTONE 25 MG TAB PO SCH ×2 (06:00→17:40)
[2017-09-23] MEDS: Ensure Enlive Strawberry 8oz Bottle PO SCH ×4 (06:00→22:35)
[2017-09-23] MEDS: LACTULOSE 20Gm/30ML SOLN PO SCH ×5 (06:00→23:48)
[2017-09-23 07:00] LABS: Hematocrit 25.8 % (36.0-46.0); Hemoglobin 9.4 g/dL (12.2-16.2); Mean Corpuscular Hemoglobin 36.7 pg (28.0-32.0); Mean Corpuscular Hgb Conc. 36.5 g/dL (32.0-36.0); Mean Corpuscular Volume 100.7 fL (80.0-100.0); Platelet Count (auto) 68 10^3/uL (140-450); Red Blood Cells 2.57 10^6/uL (4.0-5.20); White Blood Cell 7.1 10^3/uL (4.4-10.8)
[2017-09-23 07:01] LABS: Red Cell Distribution Width 26.9 % (11.8-14.3)
[2017-09-23 07:02] LABS: Band Neutrophils % (manual) 0; Basophils % (manual) 0 (0.0-2.0); Blast Cells 0; Eosinophils % (manual) 0 (0-7); Metamyelocytes % 0; Myelocytes % 0; Promyelocytes % 0; Reactive Lymphocytes 0
[2017-09-23] MEDS: PROPRANOLOL HCL 20 MG TAB PO SCH ×3 (07:02→22:35)
[2017-09-23 07:12] LABS: Albumin 2.7 g/dL (3.4-5.0); BUN/Creatinine Ratio 22.2; Calcium 8.3 mg/dL (8.5-10.1); Potassium 5.2 mmol/L (3.5-5.1)
[2017-09-23 07:15] LABS: Bilirubin, Total 9.6 mg/dL (0.2-1.0); Total Protein 6.5 g/dL (6.4-8.2)
[2017-09-23 07:33] VITALS: BP 112/58
[2017-09-23 07:36] LABS: INR 1.32 (0.9-1.15); Partial Thromboplastin Time 33.4 sec (23.78-33.04); Prothrombin Time 13.9 sec (9.27-12.13)
[2017-09-23 08:20] LABS: Lymphocytes % (manual) 3 (10.0-50.0); Monocytes % (manual) 12 (0-12)
[2017-09-23] MEDS ORDERED: NALOXONE HCL 0.4 MG/ML VIAL ONE (09:25)
[2017-09-23] MEDS ORDERED: FLUMAZENIL 0.1 MG/ML INJ 10ML MDV IV ONE (09:25)
[2017-09-23] MEDS ORDERED: diphenhdrAMINE HCL 50 MG/1 ML VL ONE (09:26)
[2017-09-23] MEDS ORDERED: SODIUM CHLORIDE LOCK 10 ML ONE (09:26)
[2017-09-23] MEDS ORDERED: LIDOCAINE VISCOUS 2% 15ML UD ONE (09:27)
[2017-09-23] MEDS: FUROSEMIDE 20 MG TAB PO SCH (10:00)
[2017-09-23] MEDS: RIFAXIMIN 550 MG TAB PO SCH ×2 (10:00→22:33)
[2017-09-23] MEDS ORDERED: MORPHINE SULF INJ 2 MG/ML SYRINGE 1ML ONE (10:03)
[2017-09-23] MEDS: FERROUS SULFATE 325 MG TAB PO SCH ×2 (10:13→17:41)
[2017-09-23] MEDS: PANTOPRAZOLE 40 MG/10 ML VIAL IV SCH ×2 (10:16→22:38)
[2017-09-23] MEDS: MORPHINE SULF INJ 2 MG/ML SYRINGE 1ML IV PRN ×2 (10:17→22:39)
[2017-09-23] MEDS: MIDAZOLAM HCL 5 MG/ML-1ML VIAL ONE ×2 (11:42→11:45)
[2017-09-23] MEDS: fentaNYL CITRATE 100 MCG/2 ML VL ONE ×2 (11:42→11:45)
[2017-09-23 16:52] VITALS: BP 123/64
[2017-09-23 22:00] VITALS: BP 127/70
[2017-09-23] MEDS: SODIUM POLYSTYRENE SULF 15GM/60ML SUSP PO SCH (22:33)
[2017-09-23] MEDS: cefTRIAXone 1GM/10ml IVPUSH 10 ML IV SCH (22:37)
[2017-09-23] MEDS: hydrOXYzine 25 MG TAB or CAP PO PRN (23:03)
[2017-09-24] MEDS: HYDROcodone-ACET 5/325MG TAB PO PRN ×2 (01:37→20:39)
[2017-09-24] MEDS: MORPHINE SULF INJ 2 MG/ML SYRINGE 1ML IV PRN ×4 (04:47→22:30)
[2017-09-24 05:18] VITALS: BP 119/61
[2017-09-24] MEDS: PROPRANOLOL HCL 20 MG TAB PO SCH ×3 (05:37→22:30)
[2017-09-24] MEDS: SPIRONOLACTONE 25 MG TAB PO SCH ×2 (05:38→17:12)
[2017-09-24] MEDS: LACTULOSE 20Gm/30ML SOLN PO SCH ×4 (05:39→23:43)
[2017-09-24 07:32] VITALS: BP 117/60
[2017-09-24 07:37] LABS: BUN/Creatinine Ratio 21.9; Calcium 8.4 mg/dL (8.5-10.1); Potassium 3.9 mmol/L (3.5-5.1)
[2017-09-24] MEDS: FERROUS SULFATE 325 MG TAB PO SCH ×2 (08:00→17:12)
[2017-09-24] MEDS: FUROSEMIDE 20 MG TAB PO SCH (10:00)
[2017-09-24] MEDS: SODIUM POLYSTYRENE SULF 15GM/60ML SUSP PO SCH ×2 (10:00→22:00)
[2017-09-24] MEDS: RIFAXIMIN 550 MG TAB PO SCH ×2 (10:00→22:30)
[2017-09-24] MEDS: PANTOPRAZOLE 40 MG/10 ML VIAL IV SCH ×2 (10:00→22:30)
[2017-09-24 12:03] VITALS: BP 120/87
[2017-09-24] MEDS: Ensure Enlive Strawberry 8oz Bottle PO SCH ×4 (12:11→22:00)
[2017-09-24 12:45] LABS: Hematocrit 27.3 % (36.0-46.0); Hemoglobin 9.7 g/dL (12.2-16.2)
[2017-09-24 17:00] VITALS: BP 111/65
[2017-09-24 22:00] VITALS: BP 113/63
[2017-09-24] MEDS: cefTRIAXone 1GM/10ml IVPUSH 10 ML IV SCH (22:30)
[2017-09-24] MEDS: hydrOXYzine 25 MG TAB or CAP PO PRN (22:35)
[2017-09-25] MEDS: LORazepam 0.5 MG TAB PO PRN ×2 (01:11→23:44)
[2017-09-25] MEDS: LACTULOSE 20Gm/30ML SOLN PO SCH ×4 (06:00→22:14)
[2017-09-25] MEDS: Ensure Enlive Strawberry 8oz Bottle PO SCH ×4 (06:00→22:13)
[2017-09-25] MEDS: SPIRONOLACTONE 25 MG TAB PO SCH ×2 (06:35→17:39)
[2017-09-25] MEDS: PROPRANOLOL HCL 20 MG TAB PO SCH ×3 (06:36→22:14)
[2017-09-25 06:56] LABS: Hemoglobin 8.5 g/dL (12.2-16.2)
[2017-09-25 06:58] LABS: Hematocrit 23.6 % (36.0-46.0)
[2017-09-25 08:00] VITALS: BP 107/55
[2017-09-25 08:27] VITALS: BP 107/55
[2017-09-25] MEDS: FERROUS SULFATE 325 MG TAB PO SCH ×2 (09:04→17:39)
[2017-09-25] MEDS: PANTOPRAZOLE 40 MG/10 ML VIAL IV SCH ×2 (09:05→22:13)
[2017-09-25] MEDS: FUROSEMIDE 20 MG TAB PO SCH (09:05)
[2017-09-25] MEDS: SODIUM POLYSTYRENE SULF 15GM/60ML SUSP PO SCH ×2 (09:08→22:00)
[2017-09-25] MEDS: RIFAXIMIN 550 MG TAB PO SCH ×2 (09:08→22:14)
[2017-09-25] MEDS: MORPHINE SULF INJ 2 MG/ML SYRINGE 1ML IV PRN ×2 (09:22→20:48)
[2017-09-25] MEDS: ONDANSETRON HCL 4 MG/2 ML VIAL IV PRN ×2 (09:22→20:48)
[2017-09-25] MEDS: HYDROcodone-ACET 5/325MG TAB PO PRN ×2 (11:52→22:35)
[2017-09-25 12:36] VITALS: BP 120/71
[2017-09-25 16:56] VITALS: BP 103/63
[2017-09-25] MEDS: NutriHep RTU 240 mL Unflavored PO SCH (17:39)
[2017-09-25 22:00] VITALS: BP 114/65
[2017-09-25] MEDS: cefTRIAXone 1GM/10ml IVPUSH 10 ML IV SCH (22:13)
[2017-09-26] VITALS (7 sets, daily range): BP systolic 110–123; BP diastolic 59–70
[2017-09-26] MEDS: MORPHINE SULF INJ 2 MG/ML SYRINGE 1ML IV PRN ×3 (01:15→20:51)
[2017-09-26] MEDS: ONDANSETRON HCL 4 MG/2 ML VIAL IV PRN ×2 (01:15→06:39)
[2017-09-26] MEDS: LACTULOSE 20Gm/30ML SOLN PO SCH ×3 (06:37→17:48)
[2017-09-26] MEDS: SPIRONOLACTONE 25 MG TAB PO SCH ×2 (06:38→17:12)
[2017-09-26] MEDS: Ensure Enlive Strawberry 8oz Bottle PO SCH ×4 (06:38→21:39)
[2017-09-26] MEDS: PROPRANOLOL HCL 20 MG TAB PO SCH ×3 (06:39→21:40)
[2017-09-26] MEDS: hydrOXYzine 25 MG TAB or CAP PO PRN ×2 (06:39→21:40)
[2017-09-26 06:53] LABS: Basophils # (auto) 0.1 uL; Eosinophils # (auto) 0.1 uL; Eosinophils % (auto) 2.8 % (0.0-7.0); Hematocrit 22.9 % (36.0-46.0); Hemoglobin 7.9 g/dL (12.2-16.2); Lymphocytes # (auto) 0.3 uL; Lymphocytes % (auto) 5.2 % (10.0-50.0); Mean Corpuscular Hemoglobin 35.4 pg (28.0-32.0); Mean Corpuscular Hgb Conc. 34.6 g/dL (32.0-36.0); Mean Corpuscular Volume 102.2 fL (80.0-100.0); Monocytes # (auto) 0.6 uL; Monocytes % (auto) 11.5 % (0.0-12.0); Neutrophils # (auto) 4.1 uL; Neutrophils % (auto) 79.5 % (37.0-80.0); Nucleated Red Blood Cells % 0.1 %; Platelet Count (auto) 69 10^3/uL (140-450); Red Blood Cells 2.24 10^6/uL (4.0-5.20); White Blood Cell 5.1 10^3/uL (4.4-10.8)
[2017-09-26 06:54] LABS: Potassium 5.1 mmol/L (3.5-5.1)
[2017-09-26 06:59] LABS: BUN/Creatinine Ratio 32.6; Calcium 8.3 mg/dL (8.5-10.1)
[2017-09-26 07:00] LABS: Red Cell Distribution Width 27.1 % (11.8-14.3)
[2017-09-26] MEDS: FERROUS SULFATE 325 MG TAB PO SCH ×2 (07:52→17:12)
[2017-09-26] MEDS: NutriHep RTU 240 mL Unflavored PO SCH ×2 (07:54→17:12)
[2017-09-26] MEDS: RIFAXIMIN 550 MG TAB PO SCH ×2 (10:06→21:58)
[2017-09-26] MEDS: FUROSEMIDE 20 MG TAB PO SCH (10:07)
[2017-09-26] MEDS: PANTOPRAZOLE 40 MG/10 ML VIAL IV SCH ×2 (10:08→21:38)
[2017-09-26] MEDS: HYDROcodone-ACET 5/325MG TAB PO PRN ×2 (10:08→21:41)
[2017-09-26] MEDS: SODIUM POLYSTYRENE SULF 15GM/60ML SUSP PO SCH ×2 (10:09→21:40)
[2017-09-26] MEDS: cefTRIAXone 1GM/10ml IVPUSH 10 ML IV SCH (21:38)
[2017-09-26] MEDS: LORazepam 0.5 MG TAB PO PRN (23:03)
[2017-09-27] MEDS: LACTULOSE 20Gm/30ML SOLN PO SCH ×4 (00:32→17:53)
[2017-09-27 05:35] VITALS: BP 116/66
[2017-09-27] MEDS: Ensure Enlive Strawberry 8oz Bottle PO SCH ×4 (06:00→21:56)
[2017-09-27 06:07] LABS: White Blood Cell 3.9 10^3/uL (4.4-10.8)
[2017-09-27 06:09] LABS: Hematocrit 22.5 % (36.0-46.0); Mean Corpuscular Hemoglobin 36.4 pg (28.0-32.0); Mean Corpuscular Hgb Conc. 35.6 g/dL (32.0-36.0); Mean Corpuscular Volume 102.3 fL (80.0-100.0); Platelet Count (auto) 68 10^3/uL (140-450)
[2017-09-27] MEDS: PROPRANOLOL HCL 20 MG TAB PO SCH ×3 (06:09→21:55)
[2017-09-27] MEDS: SPIRONOLACTONE 25 MG TAB PO SCH ×2 (06:10→17:50)
[2017-09-27 06:16] LABS: Red Cell Distribution Width 26.5 % (11.8-14.3)
[2017-09-27] MEDS: HYDROcodone-ACET 5/325MG TAB PO PRN ×3 (06:18→23:06)
[2017-09-27 06:23] LABS: Albumin 2.6 g/dL (3.4-5.0); BUN/Creatinine Ratio 32.6; Bilirubin, Total 7.4 mg/dL (0.2-1.0); Calcium 8.5 mg/dL (8.5-10.1); Potassium 5.1 mmol/L (3.5-5.1); Total Protein 6.1 g/dL (6.4-8.2)
[2017-09-27 07:49] VITALS: BP 118/60
[2017-09-27 07:56] LABS: Band Neutrophils % (manual) 0; Basophils % (manual) 0 (0.0-2.0); Blast Cells 0; Metamyelocytes % 0; Myelocytes % 0; Promyelocytes % 0; Reactive Lymphocytes 0
[2017-09-27 07:57] LABS: Eosinophils % (manual) 4 (0-7); Lymphocytes % (manual) 6 (10.0-50.0); Monocytes % (manual) 18 (0-12)
[2017-09-27] MEDS: NutriHep RTU 240 mL Unflavored PO SCH ×2 (08:00→18:00)
[2017-09-27] MEDS: FERROUS SULFATE 325 MG TAB PO SCH ×2 (08:00→10:33)
[2017-09-27] MEDS: RIFAXIMIN 550 MG TAB PO SCH ×2 (10:00→21:55)
[2017-09-27] MEDS: FUROSEMIDE 20 MG TAB PO SCH (10:00)
[2017-09-27] MEDS: SODIUM POLYSTYRENE SULF 15GM/60ML SUSP PO SCH ×2 (10:00→21:57)
[2017-09-27] MEDS: PANTOPRAZOLE 40 MG/10 ML VIAL IV SCH ×2 (10:33→21:54)
[2017-09-27] MEDS: MORPHINE SULF INJ 2 MG/ML SYRINGE 1ML IV PRN ×2 (10:35→21:54)
[2017-09-27] MEDS: ONDANSETRON HCL 4 MG/2 ML VIAL IV PRN ×2 (10:36→21:55)
[2017-09-27 13:00] VITALS: BP 111/55
[2017-09-27 17:00] VITALS: BP 127/59
[2017-09-27 20:00] VITALS: BP 115/60
[2017-09-27 22:00] VITALS: BP 115/60
[2017-09-27] MEDS: cefTRIAXone 1GM/10ml IVPUSH 10 ML IV SCH (22:20)
[2017-09-27] MEDS: hydrOXYzine 25 MG TAB or CAP PO PRN (23:04)
[2017-09-28] MEDS: LACTULOSE 20Gm/30ML SOLN PO SCH ×5 (00:04→18:02)
[2017-09-28] MEDS: LORazepam 0.5 MG TAB PO PRN ×2 (00:04→20:50)
[2017-09-28 05:00] VITALS: BP 126/68
[2017-09-28] MEDS: hydrOXYzine 25 MG TAB or CAP PO PRN ×2 (05:07→20:51)
[2017-09-28] MEDS: HYDROcodone-ACET 5/325MG TAB PO PRN ×2 (05:08→20:50)
[2017-09-28] MEDS: Ensure Enlive Strawberry 8oz Bottle PO SCH ×4 (06:00→22:00)
[2017-09-28] MEDS: SPIRONOLACTONE 25 MG TAB PO SCH ×2 (06:45→18:02)
[2017-09-28] MEDS: PROPRANOLOL HCL 20 MG TAB PO SCH ×3 (06:45→22:40)
[2017-09-28 06:46] LABS: Hemoglobin 8.3 g/dL (12.2-16.2)
[2017-09-28 06:56] LABS: Hematocrit 23.4 % (36.0-46.0); Mean Corpuscular Hgb Conc. 35.5 g/dL (32.0-36.0); Platelet Count (auto) 84 10^3/uL (140-450); Red Blood Cells 2.25 10^6/uL (4.0-5.20); White Blood Cell 4.5 10^3/uL (4.4-10.8)
[2017-09-28 07:02] LABS: Albumin 2.8 g/dL (3.4-5.0); BUN/Creatinine Ratio 25.5; Band Neutrophils % (manual) 0; Basophils % (manual) 0 (0.0-2.0); Bilirubin, Total 7.4 mg/dL (0.2-1.0); Blast Cells 0; Calcium 8.6 mg/dL (8.5-10.1); Metamyelocytes % 0; Myelocytes % 0; Promyelocytes % 0; Reactive Lymphocytes 0; Red Cell Distribution Width 26.2 % (11.8-14.3); Total Protein 6.8 g/dL (6.4-8.2)
[2017-09-28] MEDS: NutriHep RTU 240 mL Unflavored PO SCH ×2 (08:00→18:00)
[2017-09-28] MEDS: FERROUS SULFATE 325 MG TAB PO SCH ×2 (08:29→18:02)
[2017-09-28] MEDS: MORPHINE SULF INJ 2 MG/ML SYRINGE 1ML IV PRN ×4 (08:30→23:02)
[2017-09-28] MEDS: ONDANSETRON HCL 4 MG/2 ML VIAL IV PRN ×4 (08:30→23:03)
[2017-09-28 09:18] VITALS: BP 118/63
[2017-09-28] MEDS: SODIUM POLYSTYRENE SULF 15GM/60ML SUSP PO SCH ×2 (10:03→22:00)
[2017-09-28] MEDS: PANTOPRAZOLE 40 MG/10 ML VIAL IV SCH ×2 (10:03→22:39)
[2017-09-28] MEDS: FUROSEMIDE 20 MG TAB PO SCH (10:06)
[2017-09-28] MEDS: RIFAXIMIN 550 MG TAB PO SCH ×2 (10:07→22:54)
[2017-09-28 10:48] LABS: Eosinophils % (manual) 1 (0-7); Lymphocytes % (manual) 16 (10.0-50.0); Monocytes % (manual) 7 (0-12)
[2017-09-28 12:34] VITALS: BP 107/57
[2017-09-28 16:50] VITALS: BP 122/67
[2017-09-28 20:00] VITALS: BP 130/71
[2017-09-28 22:00] VITALS: BP 130/71
[2017-09-28] MEDS: cefTRIAXone 1GM/10ml IVPUSH 10 ML IV SCH (22:39)
[2017-09-29] MEDS: LACTULOSE 20Gm/30ML SOLN PO SCH ×3 (00:01→22:00)
[2017-09-29 05:00] VITALS: BP 127/77
[2017-09-29 05:39] LABS: Basophils # (auto) 0 uL; Hemoglobin 7.8 g/dL (12.2-16.2); Mean Corpuscular Volume 103.4 fL (80.0-100.0); Nucleated Red Blood Cells % 0.1 %; White Blood Cell 4.8 10^3/uL (4.4-10.8)
[2017-09-29 05:43] LABS: Basophils % (auto) 0.4 % (0.0-2.0); Eosinophils # (auto) 0.1 uL; Hematocrit 21.6 % (36.0-46.0); Lymphocytes # (auto) 0.5 uL; Lymphocytes % (auto) 11.2 % (10.0-50.0); Mean Corpuscular Hemoglobin 37.1 pg (28.0-32.0); Mean Corpuscular Hgb Conc. 35.9 g/dL (32.0-36.0); Monocytes # (auto) 0.7 uL; Monocytes % (auto) 14.2 % (0.0-12.0); Neutrophils # (auto) 3.4 uL; Neutrophils % (auto) 71.2 % (37.0-80.0); Platelet Count (auto) 87 10^3/uL (140-450); Red Blood Cells 2.09 10^6/uL (4.0-5.20)
[2017-09-29] MEDS: Ensure Enlive Strawberry 8oz Bottle PO SCH (06:00)
[2017-09-29 06:01] LABS: Albumin 2.7 g/dL (3.4-5.0); BUN/Creatinine Ratio 20.2; Bilirubin, Total 6.9 mg/dL (0.2-1.0); Calcium 8.6 mg/dL (8.5-10.1); Potassium 4.9 mmol/L (3.5-5.1); Total Protein 6.5 g/dL (6.4-8.2)
[2017-09-29] MEDS: PROPRANOLOL HCL 20 MG TAB PO SCH ×3 (06:29→22:00)
[2017-09-29] MEDS: SPIRONOLACTONE 25 MG TAB PO SCH ×2 (06:29→18:00)
[2017-09-29] MEDS: hydrOXYzine 25 MG TAB or CAP PO PRN ×2 (06:44→23:04)
[2017-09-29] MEDS: HYDROcodone-ACET 5/325MG TAB PO PRN ×2 (06:45→22:47)
[2017-09-29] MEDS: NutriHep RTU 240 mL Unflavored PO SCH ×2 (08:00→18:00)
[2017-09-29] MEDS: FERROUS SULFATE 325 MG TAB PO SCH ×2 (08:54→18:00)
[2017-09-29] MEDS: ONDANSETRON HCL 4 MG/2 ML VIAL IV PRN ×2 (08:55→20:25)
[2017-09-29] MEDS: MORPHINE SULF INJ 2 MG/ML SYRINGE 1ML IV PRN ×2 (08:55→20:38)
[2017-09-29 09:00] VITALS: BP 111/60
[2017-09-29] MEDS: RIFAXIMIN 550 MG TAB PO SCH ×2 (10:00→22:38)
[2017-09-29] MEDS: FUROSEMIDE 20 MG TAB PO SCH (10:00)
[2017-09-29] MEDS: SODIUM POLYSTYRENE SULF 15GM/60ML SUSP PO SCH ×2 (10:00→22:00)
[2017-09-29] MEDS: LORazepam 0.5 MG TAB PO PRN ×2 (10:47→22:59)
[2017-09-29 13:00] VITALS: BP 108/57
[2017-09-29 17:00] VITALS: BP 107/57
[2017-09-29 20:00] VITALS: BP 120/68
[2017-09-29 21:58] VITALS: BP 120/68
[2017-09-29] MEDS: PANTOPRAZOLE 40 MG TAB PO SCH (22:38)
[2017-09-30] MEDS: MORPHINE SULF INJ 2 MG/ML SYRINGE 1ML IV PRN ×2 (01:18→10:29)
[2017-09-30] MEDS: ONDANSETRON HCL 4 MG/2 ML VIAL IV PRN (01:19)
[2017-09-30 04:55] VITALS: BP 120/68
[2017-09-30 05:09] VITALS: BP 107/58
[2017-09-30] MEDS: SPIRONOLACTONE 25 MG TAB PO SCH (06:00)
[2017-09-30] MEDS: PROPRANOLOL HCL 20 MG TAB PO SCH ×2 (06:00→14:00)
[2017-09-30 08:00] VITALS: BP 115/61
[2017-09-30] MEDS: NutriHep RTU 240 mL Unflavored PO SCH (08:00)
[2017-09-30] MEDS: FERROUS SULFATE 325 MG TAB PO SCH (08:00)
[2017-09-30 09:19] VITALS: BP 112/61
[2017-09-30] MEDS: FUROSEMIDE 20 MG TAB PO SCH (10:00)
[2017-09-30] MEDS: PANTOPRAZOLE 40 MG TAB PO SCH (10:00)
[2017-09-30] MEDS: SODIUM POLYSTYRENE SULF 15GM/60ML SUSP PO SCH (10:00)
[2017-09-30] MEDS: RIFAXIMIN 550 MG TAB PO SCH (10:00)
[2017-09-30] MEDS: LACTULOSE 20Gm/30ML SOLN PO SCH (10:00)
[2017-09-30 10:21] LABS: Basophils # (auto) 0 uL; Eosinophils # (auto) 0.1 uL; Lymphocytes # (auto) 0.4 uL; Monocytes # (auto) 0.5 uL; Neutrophils # (auto) 3.4 uL; White Blood Cell 4.4 10^3/uL (4.4-10.8)
[2017-09-30 10:22] LABS: Basophils % (auto) 0.5 % (0.0-2.0); Eosinophils % (auto) 2.3 % (0.0-7.0); Hematocrit 20.9 % (36.0-46.0); Hemoglobin 7.6 g/dL (12.2-16.2); Lymphocytes % (auto) 8.6 % (10.0-50.0); Mean Corpuscular Hemoglobin 37.5 pg (28.0-32.0); Mean Corpuscular Hgb Conc. 36.1 g/dL (32.0-36.0); Mean Corpuscular Volume 103.9 fL (80.0-100.0); Monocytes % (auto) 10.9 % (0.0-12.0); Neutrophils % (auto) 77.7 % (37.0-80.0); Platelet Count (auto) 101 10^3/uL (140-450); Red Blood Cells 2.02 10^6/uL (4.0-5.20)
[2017-09-30 10:28] LABS: Red Cell Distribution Width 25.6 % (11.8-14.3)
[2017-09-30 10:33] LABS: Calcium 8.5 mg/dL (8.5-10.1); Potassium 4.8 mmol/L (3.5-5.1)
[2017-09-30] MEDS ORDERED: NALOXONE HCL 0.4 MG/ML VIAL ONE (11:45)
[2017-09-30] MEDS ORDERED: SODIUM CHLORIDE LOCK 10 ML ONE (11:45)
[2017-09-30] MEDS ORDERED: FLUMAZENIL 0.1 MG/ML INJ 10ML MDV IV ONE (11:45)
[2017-09-30] MEDS ORDERED: LIDOCAINE VISCOUS 2% 15ML UD ONE (11:45)
[2017-09-30] MEDS ORDERED: diphenhdrAMINE HCL 50 MG/1 ML VL ONE (11:46)
[2017-09-30] MEDS: fentaNYL CITRATE 100 MCG/2 ML VL ONE ×2 (11:47→11:50)
[2017-09-30] MEDS: MIDAZOLAM HCL 5 MG/ML-1ML VIAL ONE ×2 (11:47→11:50)
[2017-09-30] MEDS: HYDROcodone-ACET 5/325MG TAB PO PRN (15:06)
[2017-09-30 15:30] VITALS: BP 107/58
[2017-09-30 16:41] VITALS: BP 117/69
== END 2017-09-30 16:25 | disposition home health service (06) | DRG 441 ==
LOC: EDBD 11:28 → ER 11:28 → OVERFLOW 11:29 → WEST WING 09-21 07:38
PROVIDERS: ADMIT Internal Medicine; ATTEND Internal Medicine
PROC: 30233N1 Transfusion of Nonautologous Red Blood Cells into Peripheral Vein, Percutaneous Approach (ICD-10-PCS; 2017-09-20)
PROC: 06L38CZ Occlusion of Esophageal Vein with Extraluminal Device, Via Natural or Artificial Opening Endoscopic (ICD-10-PCS; principal; 2017-09-23 11:36)
PROC: 0DJ08ZZ Inspection of Upper Intestinal Tract, Via Natural or Artificial Opening Endoscopic (ICD-10-PCS; 2017-09-30)
DX: K72.90 Hepatic failure, unspecified without coma (principal); K25.4 Chronic or unspecified gastric ulcer with hemorrhage; N17.9 Acute kidney failure, unspecified; E87.1 Hypo-osmolality and hyponatremia; D68.9 Coagulation defect, unspecified; E44.0 Moderate protein-calorie malnutrition; E72.20 Disorder of urea cycle metabolism, unspecified; K76.6 Portal hypertension; K22.10 Ulcer of esophagus without bleeding; I85.10 Secondary esophageal varices without bleeding; D62 Acute posthemorrhagic anemia; K31.89 Other diseases of stomach and duodenum; K70.31 Alcoholic cirrhosis of liver with ascites; F41.9 Anxiety disorder, unspecified; F32.9 Major depressive disorder, single episode, unspecified; E78.5 Hyperlipidemia, unspecified; K29.70 Gastritis, unspecified, without bleeding; D69.59 Other secondary thrombocytopenia; E83.51 Hypocalcemia; E87.5 Hyperkalemia; I12.9 Hypertensive chronic kidney disease with stage 1 through stage 4 chronic kidney disease, or unspecified chronic kidney disease; K29.60 Other gastritis without bleeding; K80.20 Calculus of gallbladder without cholecystitis without obstruction; N18.3 Chronic kidney disease, stage 3 (moderate); Z82.49 Family history of ischemic heart disease and other diseases of the circulatory system; Z85.3 Personal history of malignant neoplasm of breast; Z68.23 Body mass index [BMI] 23.0-23.9, adult
CPT/HCPCS: 36415; 36430; 43235; 74176; 76700; 80048; 80053; 80307; 81001; 82140; 82247; 82270; 82962; 83735; 84132; 84484; 84702; 85007; 85014; 85018; 85025; 85027; 85610; 85730; 86677; 86850; 86900; 86901; 86920; 93005; 96365; 96375; 99291; A6257; C9113; J0610; J0696; J1815; J2250; J2405

== ENCOUNTER 2017-10-17 19:53 | Inpatient (IN) | payer MEDICARE, MEDICAID ==
[~2017-10-17] VITALS: Ht 165.1 cm; Wt 58.4 kg
[~2017-10-17 19:53] MED LIST changes: +FOLI1TAB6 PO; -FURO20TA PO; +FURO40TA4 PO; +HYDR-4683 PO; +LORA1TAB12 PO; +MORP15TA SL; +ONDA4TAB5 PO
[2017-10-17 21:38] LABS: Albumin 3.1 g/dL (3.4-5.0); BUN/Creatinine Ratio 26.4; Calcium 8.3 mg/dL (8.5-10.1); Potassium 4.4 mmol/L (3.5-5.1)
[2017-10-17 21:41] LABS: Total Protein 7.2 g/dL (6.4-8.2)
[2017-10-17 21:45] LABS: Hematocrit 17.9 % (36.0-46.0); Red Blood Cells 1.53 10^6/uL (4.0-5.20); Red Cell Distribution Width 15.1 % (11.8-14.3); White Blood Cell 3.2 10^3/uL (4.4-10.8)
[2017-10-17 21:47] LABS: Mean Corpuscular Hemoglobin 41.7 pg (28.0-32.0); Mean Corpuscular Hgb Conc. 35.7 g/dL (32.0-36.0); Mean Corpuscular Volume 116.6 fL (80.0-100.0)
[2017-10-17 21:59] LABS: INR 1.38 (0.9-1.15); Partial Thromboplastin Time 27.2 sec (23.78-33.04); Prothrombin Time 14.5 sec (9.27-12.13)
[2017-10-17 22:22] LABS: Hemoglobin 6.4 g/dL (12.2-16.2)
[2017-10-17 22:23] LABS: Platelet Count (auto) 79 10^3/uL (140-450)
[2017-10-17 22:24] LABS: Band Neutrophils % (manual) 0; Basophils % (manual) 0 (0.0-2.0); Blast Cells 0; Eosinophils % (manual) 0 (0-7); Metamyelocytes % 0; Myelocytes % 0; Promyelocytes % 0; Reactive Lymphocytes 0
[2017-10-17 22:27] LABS: Lymphocytes % (manual) 7 (10.0-50.0); Monocytes % (manual) 4 (0-12)
[2017-10-17] MEDS ORDERED: hydrOXYzine 25 MG TAB or CAP PO ONE (23:00)
[2017-10-17] MEDS ORDERED: MORPHINE SULF 15mg ER tab PO ONE (23:00)
[2017-10-18] VITALS (16 sets, daily range): BP systolic 112–126; BP diastolic 59–82
[2017-10-18] MEDS ORDERED: hydrOXYzine HCL 10 MG TAB PO PRN (00:15)
[2017-10-18] MEDS ORDERED: ONDANSETRON HCL 4 MG/2 ML VIAL IV PRN (00:15)
[2017-10-18] MEDS ORDERED: MORPHINE SULF INJ 2 MG/ML SYRINGE 1ML IV PRN (00:15)
[2017-10-18] MEDS: TEMAZEPAM 15 MG CAP PO PRN (01:38)
[2017-10-18] MEDS: HYDROcodone-ACET 5/325MG TAB PO PRN ×4 (04:49→22:10)
[2017-10-18] MEDS: PANTOPRAZOLE 40 MG TAB PO SCH ×2 (06:35→18:18)
[2017-10-18] MEDS: SPIRONOLACTONE 25 MG TAB PO SCH ×2 (06:40→18:19)
[2017-10-18] MEDS: FERROUS SULFATE 325 MG TAB PO SCH ×2 (09:08→18:19)
[2017-10-18] MEDS: PROPRANOLOL HCL 20 MG TAB PO SCH ×2 (09:09→22:09)
[2017-10-18] MEDS: FOLIC ACID 1 MG TAB PO SCH (09:09)
[2017-10-18] MEDS: LACTULOSE 20Gm/30ML SOLN PO SCH (09:10)
[2017-10-18] MEDS: FUROSEMIDE 40 MG TAB PO SCH (09:10)
[2017-10-18] MEDS: RIFAXIMIN 550 MG TAB PO SCH ×2 (10:44→22:09)
[2017-10-18 11:38] LABS: Hematocrit 24.5 % (36.0-46.0); Hemoglobin 8.9 g/dL (12.2-16.2); White Blood Cell 5.3 10^3/uL (4.4-10.8)
[2017-10-18 11:40] LABS: Mean Corpuscular Hemoglobin 38.7 pg (28.0-32.0); Mean Corpuscular Hgb Conc. 36.3 g/dL (32.0-36.0); Mean Corpuscular Volume 106.6 fL (80.0-100.0); Platelet Count (auto) 84 10^3/uL (140-450)
[2017-10-18 12:28] LABS: Red Cell Distribution Width 23.3 % (11.8-14.3)
[2017-10-18 12:29] LABS: Band Neutrophils % (manual) 1; Basophils % (manual) 0 (0.0-2.0); Blast Cells 0; Eosinophils % (manual) 1 (0-7); Lymphocytes % (manual) 5 (10.0-50.0); Metamyelocytes % 0; Monocytes % (manual) 11 (0-12); Myelocytes % 0; Promyelocytes % 0; Reactive Lymphocytes 0
[2017-10-19] VITALS (11 sets, daily range): BP systolic 97–139; BP diastolic 62–92
[2017-10-19] MEDS: TEMAZEPAM 15 MG CAP PO PRN (02:00)
[2017-10-19] MEDS: HYDROcodone-ACET 5/325MG TAB PO PRN ×2 (06:10→12:33)
[2017-10-19] MEDS: SPIRONOLACTONE 25 MG TAB PO SCH (06:10)
[2017-10-19] MEDS: PANTOPRAZOLE 40 MG TAB PO SCH (06:10)
[2017-10-19] MEDS: FOLIC ACID 1 MG TAB PO SCH (08:19)
[2017-10-19] MEDS: FERROUS SULFATE 325 MG TAB PO SCH (08:19)
[2017-10-19] MEDS: LACTULOSE 20Gm/30ML SOLN PO SCH (08:19)
[2017-10-19] MEDS: RIFAXIMIN 550 MG TAB PO SCH (08:31)
[2017-10-19 09:04] LABS: Mean Corpuscular Hemoglobin 38.7 pg (28.0-32.0)
[2017-10-19 09:06] LABS: Hematocrit 22.9 % (36.0-46.0); Hemoglobin 8.3 g/dL (12.2-16.2); Mean Corpuscular Hgb Conc. 36.3 g/dL (32.0-36.0); Mean Corpuscular Volume 106.4 fL (80.0-100.0); Platelet Count (auto) 80 10^3/uL (140-450); Red Blood Cells 2.15 10^6/uL (4.0-5.20)
[2017-10-19 09:08] LABS: BUN/Creatinine Ratio 20.1; Bilirubin, Total 9.7 mg/dL (0.2-1.0); Calcium 8.1 mg/dL (8.5-10.1); Potassium 5.5 mmol/L (3.5-5.1); Total Protein 6.8 g/dL (6.4-8.2)
[2017-10-19 09:10] LABS: Red Cell Distribution Width 22.3 % (11.8-14.3)
[2017-10-19 09:12] LABS: Basophils % (manual) 0 (0.0-2.0); Blast Cells 0; Metamyelocytes % 0; Myelocytes % 0; Promyelocytes % 0; Reactive Lymphocytes 0
[2017-10-19] MEDS: PROPRANOLOL HCL 20 MG TAB PO SCH (10:00)
[2017-10-19] MEDS: FUROSEMIDE 40 MG TAB PO SCH (10:00)
[2017-10-19 10:34] LABS: Band Neutrophils % (manual) 1; Eosinophils % (manual) 2 (0-7); Lymphocytes % (manual) 6 (10.0-50.0); Monocytes % (manual) 10 (0-12)
== END 2017-10-19 16:57 | disposition home or self-care (01) | DRG 432 ==
LOC: EDBD 19:53 → ER 19:59 → OVERFLOW 20:00 → EAST 10-18 07:30
PROVIDERS: ADMIT Nurse Practitioner; ATTEND Nurse Practitioner
PROC: 30233R1 Transfusion of Nonautologous Platelets into Peripheral Vein, Percutaneous Approach (ICD-10-PCS; principal; 2017-10-18)
PROC: 30233N1 Transfusion of Nonautologous Red Blood Cells into Peripheral Vein, Percutaneous Approach (ICD-10-PCS; 2017-10-18)
DX: K70.31 Alcoholic cirrhosis of liver with ascites (principal); N18.6 End stage renal disease; K76.7 Hepatorenal syndrome; D62 Acute posthemorrhagic anemia; A04.72 Enterocolitis due to Clostridium difficile, not specified as recurrent; I12.0 Hypertensive chronic kidney disease with stage 5 chronic kidney disease or end stage renal disease; K76.6 Portal hypertension; D59.9 Acquired hemolytic anemia, unspecified; F32.9 Major depressive disorder, single episode, unspecified; F41.9 Anxiety disorder, unspecified; D69.59 Other secondary thrombocytopenia; E78.5 Hyperlipidemia, unspecified; K72.90 Hepatic failure, unspecified without coma; Z82.0 Family history of epilepsy and other diseases of the nervous system; Z82.49 Family history of ischemic heart disease and other diseases of the circulatory system; Z85.3 Personal history of malignant neoplasm of breast; Z87.11 Personal history of peptic ulcer disease; Z87.19 Personal history of other diseases of the digestive system; Z92.21 Personal history of antineoplastic chemotherapy
CPT/HCPCS: 36415; 36430; 71045; 80053; 82140; 83605; 85007; 85027; 85610; 85730; 86850; 86900; 86901; 86920; 87040; 94761; 96374; 96375; J2405

== ENCOUNTER 2017-10-21 08:58 | Inpatient (IN) | payer MEDICARE, MEDICAID ==
[~2017-10-21] VITALS: Ht 167.6 cm; Wt 58.0 kg
[2017-10-21 10:21] LABS: Urine Bacteria NONE SEEN /hpf (None Seen); Urine Blood Negative /uL (Negative); Urine Mucus FEW (None Seen); Urine Pregnacy Test Negative (Negative); Urine Specific Gravity 1.014 (1.001-1.035); Urine WBC <1 /hpf (0 - 5)
[2017-10-21 10:57] LABS: Alcohol, Urine < 3.0 mg/dL (0-5); Amphetamine Screen, Urine NEGATIVE (NEGATIVE); Barbiturate Scree,Urine NEGATIVE (NEGATIVE); Benzodiazephine Screen, Urine NEGATIVE (NEGATIVE); Cannabinoid Screen, Urine POSITIVE (NEGATIVE); Cocaine Screen, Urine NEGATIVE (NEGATIVE); Opiate Scree,Urine POSITIVE (NEGATIVE); Phencyclidine Screen, Urine NEGATIVE (NEGATIVE)
[2017-10-21 11:03] LABS: Hemoglobin 9.2 g/dL (12.2-16.2)
[2017-10-21 11:05] LABS: Hematocrit 25.7 % (36.0-46.0); Mean Corpuscular Hemoglobin 37.7 pg (28.0-32.0); Mean Corpuscular Hgb Conc. 35.7 g/dL (32.0-36.0); Mean Corpuscular Volume 105.7 fL (80.0-100.0); Platelet Count (auto) 73 10^3/uL (140-450); Red Blood Cells 2.43 10^6/uL (4.0-5.20); White Blood Cell 4.1 10^3/uL (4.4-10.8)
[2017-10-21 11:09] LABS: BUN/Creatinine Ratio 30.8; Bilirubin, Total 11.5 mg/dL (0.2-1.0)
[2017-10-21 11:12] LABS: Red Cell Distribution Width 21.6 % (11.8-14.3)
[2017-10-21 11:19] LABS: Band Neutrophils % (manual) 0; Basophils % (manual) 0 (0.0-2.0); Blast Cells 0; Eosinophils % (manual) 0 (0-7); Metamyelocytes % 0; Myelocytes % 0; Promyelocytes % 0; Reactive Lymphocytes 0
[2017-10-21 11:36] LABS: Lymphocytes % (manual) 5 (10.0-50.0); Monocytes % (manual) 6 (0-12)
[2017-10-21] MEDS ORDERED: NITROGLYCERIN 0.4 MG SL TAB SL PRN (12:30)
[2017-10-21] MEDS ORDERED: PANTOPRAZOLE 40 MG/10 ML VIAL IV ONE (12:30)
[2017-10-21] MEDS ORDERED: cefTRIAXone 1GM/10ml IVPUSH 10 ML IV ONE (12:30)
[2017-10-21] MEDS ORDERED: CALCIUM GLUC 4.65meq/50ml D5AE 50 ML IV ONE (12:30)
[2017-10-21] MEDS ORDERED: D5W/SOD CHL 0.45% 1,000 ML IV ONE (12:30)
[2017-10-21] MEDS ORDERED: MORPHINE SULF INJ 2 MG/ML SYRINGE 1ML IV PRN (12:30)
[2017-10-21] MEDS ORDERED: LACTULOSE 20Gm/30ML SOLN PR ONE (12:30)
[2017-10-21] MEDS: LACTULOSE 20Gm/30ML SOLN PO SCH ×3 (12:38→21:22)
[2017-10-21 15:14] VITALS: BP 116/70
[2017-10-21 15:55] VITALS: BP 119/73
[2017-10-21] MEDS: metroNIDAZOLE 500MG/100ML 100 ML IV SCH ×2 (16:06→21:22)
[2017-10-21 18:15] LABS: Calcium 9.1 mg/dL (8.5-10.1)
[2017-10-21 18:25] LABS: Potassium 5.7 mmol/L (3.5-5.1)
[2017-10-21 20:02] VITALS: BP 106/61
[2017-10-21] MEDS ORDERED: SODIUM POLYSTYRENE SULF 15GM/60ML SUSP PO ONE (21:00)
[2017-10-21] MEDS ORDERED: SODIUM POLYSTYRENE SULF 15GM/60ML SUSP ONE (21:24)
[2017-10-22] VITALS: BP 119/71
[2017-10-22] MEDS: LACTULOSE 20Gm/30ML SOLN PO SCH ×3 (01:03→11:03)
[2017-10-22 04:00] VITALS: BP 117/60
[2017-10-22] MEDS: metroNIDAZOLE 500MG/100ML 100 ML IV SCH ×3 (05:22→22:23)
[2017-10-22 05:50] LABS: Basophils # (auto) 0 uL; Eosinophils # (auto) 0 uL; White Blood Cell 4.1 10^3/uL (4.4-10.8)
[2017-10-22 05:52] LABS: Basophils % (auto) 0.5 % (0.0-2.0); Eosinophils % (auto) 1.2 % (0.0-7.0); Hematocrit 22.2 % (36.0-46.0); Lymphocytes # (auto) 2.1 uL; Lymphocytes % (auto) 50.7 % (10.0-50.0); Mean Corpuscular Hemoglobin 38.7 pg (28.0-32.0); Mean Corpuscular Volume 107.6 fL (80.0-100.0); Monocytes # (auto) 0.5 uL; Monocytes % (auto) 12.7 % (0.0-12.0); Neutrophils # (auto) 1.4 uL; Neutrophils % (auto) 34.9 % (37.0-80.0); Nucleated Red Blood Cells % 0.2 %; Platelet Count (auto) 67 10^3/uL (140-450); Red Blood Cells 2.06 10^6/uL (4.0-5.20)
[2017-10-22 05:55] LABS: Red Cell Distribution Width 21.4 % (11.8-14.3)
[2017-10-22 06:00] LABS: INR 1.37 (0.9-1.15); Partial Thromboplastin Time 33.6 sec (23.78-33.04); Prothrombin Time 14.4 sec (9.27-12.13)
[2017-10-22 06:09] LABS: Albumin 2.8 g/dL (3.4-5.0); Calcium 9.2 mg/dL (8.5-10.1); Potassium 4.6 mmol/L (3.5-5.1)
[2017-10-22 06:11] LABS: BUN/Creatinine Ratio 37.5
[2017-10-22 06:13] LABS: Bilirubin, Total 10.7 mg/dL (0.2-1.0); Total Protein 6.4 g/dL (6.4-8.2)
[2017-10-22 08:00] VITALS: BP 124/71
[2017-10-22] MEDS: PANTOPRAZOLE 40 MG/10 ML VIAL IV SCH (11:02)
[2017-10-22] MEDS: cefTRIAXone 1GM/10ml IVPUSH 10 ML IV SCH (11:02)
[2017-10-22 11:49] VITALS: BP 110/65
[2017-10-22 15:43] VITALS: BP 122/72
[2017-10-22] MEDS ORDERED: LACTULOSE 20Gm/30ML SOLN PO ONE (16:15)
[2017-10-22 20:00] VITALS: BP 129/70
[2017-10-22] MEDS: RIFAXIMIN 550 MG TAB PO SCH (22:00)
[2017-10-23] VITALS (13 sets, daily range): BP systolic 126–157; BP diastolic 68–78
[2017-10-23 05:43] LABS: Basophils # (auto) 0 uL; Hemoglobin 7.5 g/dL (12.2-16.2); Mean Corpuscular Hemoglobin 38.4 pg (28.0-32.0); Mean Corpuscular Hgb Conc. 35.8 g/dL (32.0-36.0); Monocytes # (auto) 0.4 uL; Nucleated Red Blood Cells % 0.1 %; Red Blood Cells 1.96 10^6/uL (4.0-5.20); White Blood Cell 2.8 10^3/uL (4.4-10.8)
[2017-10-23 05:44] LABS: Basophils % (auto) 0.2 % (0.0-2.0); Eosinophils # (auto) 0 uL; Eosinophils % (auto) 1.1 % (0.0-7.0); Lymphocytes # (auto) 1.1 uL; Lymphocytes % (auto) 38.9 % (10.0-50.0); Mean Corpuscular Volume 107.2 fL (80.0-100.0); Monocytes % (auto) 14.1 % (0.0-12.0); Neutrophils # (auto) 1.3 uL; Neutrophils % (auto) 45.7 % (37.0-80.0); Platelet Count (auto) 63 10^3/uL (140-450)
[2017-10-23 05:54] LABS: Albumin 2.7 g/dL (3.4-5.0); Calcium 8.7 mg/dL (8.5-10.1); Potassium 3.9 mmol/L (3.5-5.1)
[2017-10-23 05:56] LABS: BUN/Creatinine Ratio 30.8
[2017-10-23 05:59] LABS: Bilirubin, Total 9.3 mg/dL (0.2-1.0); Total Protein 6.3 g/dL (6.4-8.2)
[2017-10-23] MEDS: metroNIDAZOLE 500MG/100ML 100 ML IV SCH ×3 (06:25→22:11)
[2017-10-23] MEDS ORDERED: LACTULOSE 20Gm/30ML SOLN PO SCH (10:00)
[2017-10-23] MEDS: SOD CHL 0.45% 1,000 ML IV SCH ×2 (12:05→22:39)
[2017-10-23] MEDS: cefTRIAXone 1GM/10ml IVPUSH 10 ML IV SCH (12:05)
[2017-10-23] MEDS: PANTOPRAZOLE 40 MG/10 ML VIAL IV SCH (12:06)
[2017-10-23] MEDS: LACTULOSE 20Gm/30ML SOLN PO SCH ×3 (12:06→22:12)
[2017-10-23] MEDS: RIFAXIMIN 550 MG TAB PO SCH ×2 (12:06→22:12)
[2017-10-23] MEDS ORDERED: ONDANSETRON HCL 4 MG/2 ML VIAL IV PRN (23:45)
[2017-10-24] VITALS (11 sets, daily range): BP systolic 119–163; BP diastolic 60–85
[2017-10-24] MEDS: metroNIDAZOLE 500MG/100ML 100 ML IV SCH ×3 (05:41→21:23)
[2017-10-24] MEDS: LACTULOSE 20Gm/30ML SOLN PO SCH ×5 (05:41→21:23)
[2017-10-24 06:55] LABS: Mean Corpuscular Hemoglobin 36.2 pg (28.0-32.0); White Blood Cell 3.4 10^3/uL (4.4-10.8)
[2017-10-24 06:57] LABS: Hematocrit 26.5 % (36.0-46.0); Hemoglobin 9.5 g/dL (12.2-16.2); Mean Corpuscular Hgb Conc. 35.8 g/dL (32.0-36.0); Mean Corpuscular Volume 101.1 fL (80.0-100.0); Platelet Count (auto) 65 10^3/uL (140-450); Red Blood Cells 2.63 10^6/uL (4.0-5.20)
[2017-10-24 07:25] LABS: Red Cell Distribution Width 21.8 % (11.8-14.3)
[2017-10-24 07:26] LABS: Band Neutrophils % (manual) 0; Basophils % (manual) 0 (0.0-2.0); Blast Cells 0; Metamyelocytes % 0; Myelocytes % 0; Promyelocytes % 0; Reactive Lymphocytes 0
[2017-10-24 07:37] LABS: Albumin 2.9 g/dL (3.4-5.0); Calcium 8.4 mg/dL (8.5-10.1); Potassium 4.2 mmol/L (3.5-5.1)
[2017-10-24 07:46] LABS: Bilirubin, Total 9.2 mg/dL (0.2-1.0); Total Protein 6.5 g/dL (6.4-8.2)
[2017-10-24 08:12] LABS: Eosinophils % (manual) 3 (0-7); Lymphocytes % (manual) 8 (10.0-50.0); Monocytes % (manual) 14 (0-12)
[2017-10-24] MEDS ORDERED: SODIUM CHLORIDE LOCK 10 ML ONE (08:20)
[2017-10-24] MEDS ORDERED: LIDOCAINE VISCOUS 2% 15ML UD ONE (08:20)
[2017-10-24] MEDS ORDERED: diphenhdrAMINE HCL 50 MG/1 ML VL ONE (08:21)
[2017-10-24] MEDS: RIFAXIMIN 550 MG TAB PO SCH ×2 (10:00→21:23)
[2017-10-24] MEDS: PANTOPRAZOLE 40 MG/10 ML VIAL IV SCH (10:12)
[2017-10-24] MEDS: cefTRIAXone 1GM/10ml IVPUSH 10 ML IV SCH (10:12)
[2017-10-24] MEDS: D5W/SOD CHL 0.45% 1,000 ML IV SCH ×2 (10:13→20:01)
[2017-10-24 11:37] LABS: Creatinine, Urine 105 mg/dL (30.0-125.0); Sodium Urine 36 mmol/L (40-220)
[2017-10-24] MEDS: fentaNYL CITRATE 100 MCG/2 ML VL ONE ×2 (13:53→13:58)
[2017-10-24] MEDS: MIDAZOLAM HCL 5 MG/ML-1ML VIAL ONE ×2 (13:53→13:58)
[2017-10-25] VITALS (7 sets, daily range): BP systolic 132–166; BP diastolic 70–96
[2017-10-25] MEDS: D5W/SOD CHL 0.45% 1,000 ML IV SCH ×2 (03:37→14:01)
[2017-10-25] MEDS: metroNIDAZOLE 500MG/100ML 100 ML IV SCH ×3 (05:55→21:32)
[2017-10-25] MEDS: LACTULOSE 20Gm/30ML SOLN PO SCH ×4 (05:55→21:32)
[2017-10-25 06:00] LABS: Basophils # (auto) 0 uL; Basophils % (auto) 0.3 % (0.0-2.0); Eosinophils # (auto) 0.1 uL; Eosinophils % (auto) 2.1 % (0.0-7.0); Hematocrit 27.8 % (36.0-46.0); Hemoglobin 9.9 g/dL (12.2-16.2); Lymphocytes # (auto) 1.3 uL; Lymphocytes % (auto) 35.6 % (10.0-50.0); Mean Corpuscular Hemoglobin 36.1 pg (28.0-32.0); Mean Corpuscular Hgb Conc. 35.7 g/dL (32.0-36.0); Mean Corpuscular Volume 101.1 fL (80.0-100.0); Monocytes # (auto) 0.3 uL; Monocytes % (auto) 7.6 % (0.0-12.0); Neutrophils % (auto) 54.4 % (37.0-80.0); Nucleated Red Blood Cells % 0.2 %; Platelet Count (auto) 64 10^3/uL (140-450); Red Blood Cells 2.75 10^6/uL (4.0-5.20); White Blood Cell 3.8 10^3/uL (4.4-10.8)
[2017-10-25 06:13] LABS: BUN/Creatinine Ratio 33.8; Calcium 8.4 mg/dL (8.5-10.1); Red Cell Distribution Width 21.7 % (11.8-14.3)
[2017-10-25 06:16] LABS: Bilirubin, Total 9.2 mg/dL (0.2-1.0); Total Protein 7.1 g/dL (6.4-8.2)
[2017-10-25] MEDS: cefTRIAXone 1GM/10ml IVPUSH 10 ML IV SCH (09:43)
[2017-10-25] MEDS: RIFAXIMIN 550 MG TAB PO SCH ×2 (09:43→21:33)
[2017-10-25] MEDS: PANTOPRAZOLE 40 MG/10 ML VIAL IV SCH (09:43)
[2017-10-26] MEDS: D5W/SOD CHL 0.45% 1,000 ML IV SCH ×2 (02:05→13:49)
[2017-10-26 03:59] VITALS: BP 154/100
[2017-10-26] MEDS: LACTULOSE 20Gm/30ML SOLN PO SCH ×4 (05:27→21:54)
[2017-10-26] MEDS: metroNIDAZOLE 500MG/100ML 100 ML IV SCH ×3 (05:27→21:54)
[2017-10-26 07:08] LABS: Mean Corpuscular Hgb Conc. 35.1 g/dL (32.0-36.0); Nucleated Red Blood Cells % 0.1 %
[2017-10-26 07:11] LABS: Basophils # (auto) 0 uL; Basophils % (auto) 0.9 % (0.0-2.0); Eosinophils # (auto) 0.1 uL; Eosinophils % (auto) 1.9 % (0.0-7.0); Hemoglobin 10.5 g/dL (12.2-16.2); Lymphocytes # (auto) 1.3 uL; Mean Corpuscular Hemoglobin 35.9 pg (28.0-32.0); Mean Corpuscular Volume 102.2 fL (80.0-100.0); Monocytes # (auto) 0.4 uL; Monocytes % (auto) 8.4 % (0.0-12.0); Neutrophils # (auto) 2.6 uL; Neutrophils % (auto) 59.8 % (37.0-80.0); Platelet Count (auto) 71 10^3/uL (140-450); Red Blood Cells 2.93 10^6/uL (4.0-5.20); White Blood Cell 4.4 10^3/uL (4.4-10.8)
[2017-10-26 07:17] LABS: Albumin 3.5 g/dL (3.4-5.0); BUN/Creatinine Ratio 26.4; Bilirubin, Total 9.8 mg/dL (0.2-1.0); Calcium 8.8 mg/dL (8.5-10.1); Potassium 3.2 mmol/L (3.5-5.1); Total Protein 7.4 g/dL (6.4-8.2)
[2017-10-26 07:26] LABS: Red Cell Distribution Width 21.6 % (11.8-14.3)
[2017-10-26 08:00] VITALS: BP 142/92
[2017-10-26] MEDS: cefTRIAXone 1GM/10ml IVPUSH 10 ML IV SCH (09:46)
[2017-10-26] MEDS: RIFAXIMIN 550 MG TAB PO SCH ×2 (09:47→22:34)
[2017-10-26] MEDS: PANTOPRAZOLE 40 MG/10 ML VIAL IV SCH (09:47)
[2017-10-26 11:46] VITALS: BP 155/89
[2017-10-26 16:00] VITALS: BP 148/77
[2017-10-26 19:51] VITALS: BP 142/87
[2017-10-27] VITALS: BP 129/86
[2017-10-27] MEDS: D5W/SOD CHL 0.45% 1,000 ML IV SCH (02:29)
[2017-10-27 04:00] VITALS: BP 134/74
[2017-10-27 05:04] LABS: Neutrophils # (auto) 3.2 uL
[2017-10-27 05:06] LABS: Basophils # (auto) 0 uL; Basophils % (auto) 0.7 % (0.0-2.0); Eosinophils # (auto) 0.1 uL; Hematocrit 25.7 % (36.0-46.0); Hemoglobin 9.2 g/dL (12.2-16.2); Lymphocytes # (auto) 0.3 uL; Lymphocytes % (auto) 6.9 % (10.0-50.0); Mean Corpuscular Hgb Conc. 35.9 g/dL (32.0-36.0); Mean Corpuscular Volume 103.1 fL (80.0-100.0); Monocytes # (auto) 0.6 uL; Monocytes % (auto) 13.4 % (0.0-12.0); Nucleated Red Blood Cells % 0.3 %; Platelet Count (auto) 70 10^3/uL (140-450); Red Blood Cells 2.49 10^6/uL (4.0-5.20); White Blood Cell 4.3 10^3/uL (4.4-10.8)
[2017-10-27 05:09] LABS: Red Cell Distribution Width 21.2 % (11.8-14.3)
[2017-10-27 05:25] LABS: Albumin 3.2 g/dL (3.4-5.0); BUN/Creatinine Ratio 23.8; Bilirubin, Total 8.5 mg/dL (0.2-1.0); Calcium 8.7 mg/dL (8.5-10.1); Potassium 3.5 mmol/L (3.5-5.1); Total Protein 6.7 g/dL (6.4-8.2)
[2017-10-27] MEDS: LACTULOSE 20Gm/30ML SOLN PO SCH ×2 (06:09→12:00)
[2017-10-27] MEDS: metroNIDAZOLE 500MG/100ML 100 ML IV SCH ×2 (06:09→14:17)
[2017-10-27 07:50] VITALS: BP 124/67
[2017-10-27] MEDS: cefTRIAXone 1GM/10ml IVPUSH 10 ML IV SCH (08:58)
[2017-10-27] MEDS: RIFAXIMIN 550 MG TAB PO SCH (10:00)
[2017-10-27] MEDS: PANTOPRAZOLE 40 MG/10 ML VIAL IV SCH (10:01)
[2017-10-27] MEDS ORDERED: LIDOCAINE 1% HCL (LOCAL ANESTH.) INJ 20ML MDV IJ ONE (11:15)
[2017-10-27 11:50] VITALS: BP 123/61
[2017-10-27 14:59] VITALS: BP 123/61
[2017-10-27 15:41] VITALS: BP 150/70
== END 2017-10-27 16:57 | disposition hospice, home (50) | DRG 441 ==
LOC: EDBD 08:58 → ER 08:58 → TELE 08:59 → ICU CENTRL 13:47 → DOU IN ICU 13:54
PROVIDERS: ADMIT Internal Medicine; ATTEND Family Medicine
PROC: 30233R1 Transfusion of Nonautologous Platelets into Peripheral Vein, Percutaneous Approach (ICD-10-PCS; 2017-10-23)
PROC: 30233N1 Transfusion of Nonautologous Red Blood Cells into Peripheral Vein, Percutaneous Approach (ICD-10-PCS; 2017-10-23)
PROC: 0DJ08ZZ Inspection of Upper Intestinal Tract, Via Natural or Artificial Opening Endoscopic (ICD-10-PCS; principal; 2017-10-24 13:50)
PROC: 0W9G3ZZ Drainage of Peritoneal Cavity, Percutaneous Approach (ICD-10-PCS; 2017-10-27)
DX: K72.00 Acute and subacute hepatic failure without coma (principal); N18.6 End stage renal disease; G92 Toxic encephalopathy; E72.20 Disorder of urea cycle metabolism, unspecified; E46 Unspecified protein-calorie malnutrition; E87.0 Hyperosmolality and hypernatremia; I85.00 Esophageal varices without bleeding; K76.6 Portal hypertension; K92.2 Gastrointestinal hemorrhage, unspecified; N17.9 Acute kidney failure, unspecified; I12.0 Hypertensive chronic kidney disease with stage 5 chronic kidney disease or end stage renal disease; D69.6 Thrombocytopenia, unspecified; E86.0 Dehydration; E87.5 Hyperkalemia; E87.6 Hypokalemia; E87.8 Other disorders of electrolyte and fluid balance, not elsewhere classified; D63.8 Anemia in other chronic diseases classified elsewhere; D69.59 Other secondary thrombocytopenia; D75.89 Other specified diseases of blood and blood-forming organs; E26.9 Hyperaldosteronism, unspecified; F12.90 Cannabis use, unspecified, uncomplicated; K31.89 Other diseases of stomach and duodenum; K70.31 Alcoholic cirrhosis of liver with ascites; Z82.49 Family history of ischemic heart disease and other diseases of the circulatory system; Z85.05 Personal history of malignant neoplasm of liver; Z85.3 Personal history of malignant neoplasm of breast; Z87.11 Personal history of peptic ulcer disease; Z90.11 Acquired absence of right breast and nipple; Z98.82 Breast implant status; Z68.20 Body mass index [BMI] 20.0-20.9, adult
CPT/HCPCS: 36415; 36600; 43235; 49083; 51702; 70450; 71045; 72125; 76700; 76942; 80048; 80053; 80307; 81001; 81025; 82140; 82570; 82805; 83605; 83735; 83935; 84300; 84484; 85007; 85025; 85027; 85610; 85730; 86850; 86900; 86901; 86920; 87040; 87081; 93005; 96361; 96374; 96375; A6257; C9113; J0610; J0696; J2250; J3490

== ENCOUNTER 2017-11-12 10:02 | Inpatient (IN) | payer MEDICARE, MEDICAID ==
[~2017-11-12] VITALS: Ht 167.6 cm; Wt 55.2 kg
[2017-11-12] MEDS ORDERED: SODIUM CHLORIDE 0.9% 1,000 ML IV ONE (11:09)
[2017-11-12] MEDS ORDERED: cefTRIAXone 1GM/10ml IVPUSH 10 ML IV ONE (11:15)
[2017-11-12 11:19] LABS: Hematocrit 22.7 % (36.0-46.0); Hemoglobin 7.9 g/dL (12.2-16.2); Mean Corpuscular Hemoglobin 39.1 pg (28.0-32.0); Mean Corpuscular Hgb Conc. 34.7 g/dL (32.0-36.0); Mean Corpuscular Volume 112.6 fL (80.0-100.0); Platelet Count (auto) 88 10^3/uL (140-450); Red Blood Cells 2.02 10^6/uL (4.0-5.20); Red Cell Distribution Width 19.5 % (11.8-14.3); White Blood Cell 4.9 10^3/uL (4.4-10.8)
[2017-11-12 11:22] LABS: Basophils % (manual) 0 (0.0-2.0); Blast Cells 0; Metamyelocytes % 0; Myelocytes % 0; Promyelocytes % 0; Reactive Lymphocytes 0
[2017-11-12 11:32] LABS: Band Neutrophils % (manual) 1; Eosinophils % (manual) 2 (0-7); Lymphocytes % (manual) 14 (10.0-50.0); Monocytes % (manual) 9 (0-12)
[2017-11-12 11:53] LABS: Blood Alcohol < 3.0 mg/dL (0-5)
[2017-11-12 12:08] LABS: Alanine Aminotransferase 50 U/L (13-56); Albumin 3.3 g/dL (3.4-5.0); Alkaline Phosphatase 170 U/L (45-117); Anion Gap 5 (5-15); Aspartate Aminotransferase 95 U/L (15-37); BUN/Creatinine Ratio 19.7; Blood Urea Nitrogen 35 mg/dL (7-18); Calcium 8.9 mg/dL (8.5-10.1); Carbon Dioxide 21 mmol/L (21-32); Chloride 110 mmol/L (98-107); GFR African American 40 mL/min; GFR Non-African American 33 mL/min; Glucose 98 mg/dL (74-106); Magnesium 1.7 mg/dL (1.6-2.6); Sodium 136 mmol/L (136-145); Total Protein 7.2 g/dL (6.4-8.2)
[2017-11-12 12:24] LABS: Potassium 7.2 mmol/L (3.5-5.1)
[2017-11-12 12:29] LABS: INR 1.29 (0.9-1.15); Partial Thromboplastin Time 29.3 sec (23.78-33.04); Prothrombin Time 13.6 sec (9.27-12.13)
[2017-11-12 12:43] LABS: Urine Bacteria FEW /hpf (None Seen); Urine Blood Negative /uL (Negative); Urine Mucus FEW (None Seen); Urine Specific Gravity 1.012 (1.001-1.035); Urine WBC 2 /hpf (0 - 5)
[2017-11-12] MEDS ORDERED: CALCIUM CHL 100MG/ML 1,000 MG in D5W 5% 100 ML IV ONE (13:30)
[2017-11-12] MEDS ORDERED: ALBUTEROL SULF 2.5 MG/0.5ML(0.5%) NEB SOLN NEB ONE (13:30)
[2017-11-12] MEDS ORDERED: FUROSEMIDE 40 MG/4 ML VIAL IV ONE (13:30)
[2017-11-12] MEDS ORDERED: SODIUM BICARBONATE 8.4 % INJ 50ML VIAL IV ONE ×2 (13:30→22:15)
[2017-11-12 13:53] LABS: Alcohol, Urine < 3.0 mg/dL (0-5); Amphetamine Screen, Urine NEGATIVE (NEGATIVE); Barbiturate Scree,Urine NEGATIVE (NEGATIVE); Benzodiazephine Screen, Urine NEGATIVE (NEGATIVE); Cannabinoid Screen, Urine POSITIVE (NEGATIVE); Cocaine Screen, Urine NEGATIVE (NEGATIVE); Opiate Scree,Urine POSITIVE (NEGATIVE); Phencyclidine Screen, Urine NEGATIVE (NEGATIVE)
[2017-11-12] MEDS ORDERED: INSULIN R IV ONE ×3 (15:30→16:15)
[2017-11-12] MEDS ORDERED: D5W 5% IV ONE ×3 (15:30→16:15)
[2017-11-12] MEDS ORDERED: DEXTROSE (50%) 50ML SYRG IV PRN (16:30)
[2017-11-12] MEDS ORDERED: NITROGLYCERIN 0.4 MG SL TAB SL PRN (16:30)
[2017-11-12] MEDS ORDERED: LACTULOSE 20Gm/30ML SOLN PO ONE (16:30)
[2017-11-12] MEDS ORDERED: MORPHINE SULF INJ 2 MG/ML SYRINGE 1ML IV PRN (16:30)
[2017-11-12] MEDS: LACTULOSE 20Gm/30ML SOLN PO SCH ×3 (16:42→23:00)
[2017-11-12] MEDS: InsuLIN REG 1unit/0.01ml Soln (100units/ml) SC SCH ×2 (18:00→23:00)
[2017-11-12] MEDS ORDERED: NOREPINEPHRINE 8 MG/250ML KIT 250 ML IV SCH (18:00)
[2017-11-12] MEDS: ACCU-CHEK COMFORT CURVE STRIP VI SCH ×2 (18:24→23:00)
[2017-11-12 19:38] LABS: BUN/Creatinine Ratio 17.8; Calcium 8.8 mg/dL (8.5-10.1)
[2017-11-12 19:54] LABS: Potassium 6.2 mmol/L (3.5-5.1)
[2017-11-12] MEDS ORDERED: InsuLIN REG 1unit/0.01ml Soln (100units/ml) IV ONE (22:15)
[2017-11-12] MEDS ORDERED: CALCIUM GLUC 4.65meq/50ml D5AE 50 ML IV ONE (22:15)
[2017-11-12] MEDS ORDERED: DEXTROSE (50%) 50ML SYRG IV ONE (22:15)
[2017-11-12] MEDS ORDERED: SODIUM POLYSTYRENE SULF 15GM/60ML SUSP PO ONE (22:15)
[2017-11-13 00:41] VITALS: BP 112/67
[2017-11-13 01:11] LABS: BUN/Creatinine Ratio 19.3; Potassium 5.4 mmol/L (3.5-5.1)
[2017-11-13 01:30] VITALS: BP 126/72
[2017-11-13] MEDS: LACTULOSE 20Gm/30ML SOLN PO SCH ×7 (01:55→22:04)
[2017-11-13 04:07] VITALS: BP 126/72
[2017-11-13 05:51] LABS: Hematocrit 20.1 % (36.0-46.0); Hemoglobin 7.2 g/dL (12.2-16.2); Mean Corpuscular Hemoglobin 40.5 pg (28.0-32.0); Mean Corpuscular Hgb Conc. 35.5 g/dL (32.0-36.0); Platelet Count (auto) 92 10^3/uL (140-450); Red Blood Cells 1.77 10^6/uL (4.0-5.20); Red Cell Distribution Width 19.2 % (11.8-14.3); White Blood Cell 3.5 10^3/uL (4.4-10.8)
[2017-11-13] MEDS: InsuLIN REG 1unit/0.01ml Soln (100units/ml) SC SCH ×2 (06:00→12:00)
[2017-11-13 06:05] LABS: Basophils % (manual) 0 (0.0-2.0); Blast Cells 0; Metamyelocytes % 0; Myelocytes % 0; Promyelocytes % 0; Reactive Lymphocytes 0
[2017-11-13 06:15] LABS: Albumin 3.1 g/dL (3.4-5.0); BUN/Creatinine Ratio 20.1
[2017-11-13 06:18] LABS: Bilirubin, Total 6.7 mg/dL (0.2-1.0); Total Protein 6.9 g/dL (6.4-8.2)
[2017-11-13] MEDS: ACCU-CHEK COMFORT CURVE STRIP VI SCH ×2 (06:18→12:15)
[2017-11-13 06:20] LABS: Potassium 5.8 mmol/L (3.5-5.1)
[2017-11-13 06:22] LABS: Band Neutrophils % (manual) 2; Eosinophils % (manual) 3 (0-7); Lymphocytes % (manual) 3 (10.0-50.0); Monocytes % (manual) 5 (0-12)
[2017-11-13] MEDS ORDERED: DEXTROSE (50%) 50ML SYRG IV ONE (06:30)
[2017-11-13] MEDS ORDERED: SODIUM POLYSTYRENE SULF 15GM/60ML SUSP PO ONE (06:30)
[2017-11-13] MEDS ORDERED: CALCIUM GLUC 4.65meq/50ml D5AE 50 ML IV ONE (06:30)
[2017-11-13] MEDS ORDERED: InsuLIN REG 1unit/0.01ml Soln (100units/ml) IV ONE (06:30)
[2017-11-13] MEDS: cefTRIAXone 1GM/10ml IVPUSH 10 ML IV SCH (09:19)
[2017-11-13] MEDS ORDERED: PANTOPRAZOLE 40 MG/10 ML VIAL IV SCH (10:00)
[2017-11-13 10:36] LABS: Hemoglobin 7.2 g/dL (12.2-16.2)
[2017-11-13] MEDS ORDERED: FUROSEMIDE 40 MG TAB PO ONE (12:30)
[2017-11-13] MEDS: SOD CHL 0.45% 1,000 ML IV SCH (14:39)
[2017-11-13 15:30] VITALS: BP 123/68
[2017-11-13 17:01] VITALS: BP 123/68
[2017-11-13 21:30] VITALS: BP 112/62
[2017-11-13] MEDS: RIFAXIMIN 550 MG TAB PO SCH (22:04)
[2017-11-13] MEDS: PANTOPRAZOLE 40 MG/10 ML VIAL IV SCH (22:04)
[2017-11-14] VITALS (14 sets, daily range): BP systolic 116–164; BP diastolic 58–79
[2017-11-14] MEDS: SOD CHL 0.45% 1,000 ML IV SCH ×3 (02:02→20:15)
[2017-11-14] MEDS: LACTULOSE 20Gm/30ML SOLN PO SCH ×2 (02:03→06:04)
[2017-11-14 05:41] LABS: Mean Corpuscular Volume 115.8 fL (80.0-100.0)
[2017-11-14 05:44] LABS: Hematocrit 19.9 % (36.0-46.0); Mean Corpuscular Hemoglobin 40.7 pg (28.0-32.0); Mean Corpuscular Hgb Conc. 35.1 g/dL (32.0-36.0); Red Blood Cells 1.72 10^6/uL (4.0-5.20); Red Cell Distribution Width 19.4 % (11.8-14.3)
[2017-11-14 05:47] LABS: Hemoglobin 7.1 g/dL (12.2-16.2)
[2017-11-14 05:48] LABS: Platelet Count (auto) 86 10^3/uL (140-450); White Blood Cell 3.4 10^3/uL (4.4-10.8)
[2017-11-14 05:49] LABS: Basophils % (manual) 0 (0.0-2.0); Blast Cells 0; Metamyelocytes % 0; Myelocytes % 0; Promyelocytes % 0; Reactive Lymphocytes 0
[2017-11-14 06:33] LABS: Band Neutrophils % (manual) 2; Eosinophils % (manual) 2 (0-7); Lymphocytes % (manual) 5 (10.0-50.0); Monocytes % (manual) 5 (0-12)
[2017-11-14 07:21] LABS: Albumin 2.4 g/dL (3.4-5.0); Calcium 6.5 mg/dL (8.5-10.1); Potassium 3.9 mmol/L (3.5-5.1)
[2017-11-14 07:23] LABS: BUN/Creatinine Ratio 22.1; Phosphorus 3.5 mg/dL (2.5-4.90)
[2017-11-14 07:25] LABS: Bilirubin, Total 6.1 mg/dL (0.2-1.0); Total Protein 5.4 g/dL (6.4-8.2)
[2017-11-14 07:26] LABS: Magnesium 0.9 mg/dL (1.6-2.6)
[2017-11-14] MEDS: MAGNESIUM SULFATE 1GM/100ML 100 ML IV SCH ×2 (08:09→10:33)
[2017-11-14] MEDS: RIFAXIMIN 550 MG TAB PO SCH ×2 (10:00→22:00)
[2017-11-14] MEDS ORDERED: FUROSEMIDE 40 MG TAB PO SCH (10:00)
[2017-11-14] MEDS: cefTRIAXone 1GM/10ml IVPUSH 10 ML IV SCH (10:32)
[2017-11-14] MEDS: PANTOPRAZOLE 40 MG/10 ML VIAL IV SCH ×2 (10:32→22:08)
[2017-11-14] MEDS ORDERED: FUROSEMIDE 40 MG/4 ML VIAL IV ONE (11:30)
[2017-11-14] MEDS: LACTULOSE 20Gm/30ML SOLN PR SCH ×2 (13:57→18:31)
[2017-11-15] VITALS: BP 142/82
[2017-11-15] MEDS ORDERED: LACTULOSE 20Gm/30ML SOLN ONE ×3 (00:50→01:05)
[2017-11-15] MEDS: LACTULOSE 20Gm/30ML SOLN PR SCH ×4 (01:10→18:00)
[2017-11-15 05:31] VITALS: BP 114/70
[2017-11-15 05:56] LABS: Hemoglobin 9.8 g/dL (12.2-16.2)
[2017-11-15 05:59] LABS: Mean Corpuscular Hemoglobin 36.6 pg (28.0-32.0); Mean Corpuscular Hgb Conc. 34.8 g/dL (32.0-36.0); Mean Corpuscular Volume 105.1 fL (80.0-100.0); Platelet Count (auto) 82 10^3/uL (140-450); Red Blood Cells 2.67 10^6/uL (4.0-5.20)
[2017-11-15 06:11] LABS: Red Cell Distribution Width 25.6 % (11.8-14.3); White Blood Cell 5.2 10^3/uL (4.4-10.8)
[2017-11-15 06:12] LABS: Basophils % (manual) 0 (0.0-2.0); Blast Cells 0; Metamyelocytes % 0; Myelocytes % 0; Promyelocytes % 0; Reactive Lymphocytes 0
[2017-11-15 06:21] LABS: Alanine Aminotransferase 45 U/L (13-56); Anion Gap 11 (5-15); Aspartate Aminotransferase 95 U/L (15-37); BUN/Creatinine Ratio 22.9; Blood Urea Nitrogen 22 mg/dL (7-18); Calcium 8.5 mg/dL (8.5-10.1); Carbon Dioxide 18 mmol/L (21-32); Chloride 112 mmol/L (98-107); GFR African American 82 mL/min; GFR Non-African American 68 mL/min; Glucose 96 mg/dL (74-106); Potassium 4.8 mmol/L (3.5-5.1); Sodium 141 mmol/L (136-145)
[2017-11-15 06:24] LABS: Alkaline Phosphatase 131 U/L (45-117); Bilirubin, Total 8.9 mg/dL (0.2-1.0); Total Protein 7.4 g/dL (6.4-8.2)
[2017-11-15] MEDS: SOD CHL 0.45% 1,000 ML IV SCH ×2 (06:37→16:15)
[2017-11-15 07:20] LABS: Band Neutrophils % (manual) 2; Eosinophils % (manual) 4 (0-7); Lymphocytes % (manual) 11 (10.0-50.0); Monocytes % (manual) 3 (0-12)
[2017-11-15 08:47] VITALS: BP 146/79
[2017-11-15] MEDS: cefTRIAXone 1GM/10ml IVPUSH 10 ML IV SCH (09:03)
[2017-11-15] MEDS: PANTOPRAZOLE 40 MG/10 ML VIAL IV SCH (09:03)
[2017-11-15] MEDS: RIFAXIMIN 550 MG TAB PO SCH (10:00)
[2017-11-15 12:36] VITALS: BP 140/73
[2017-11-15 16:08] VITALS: BP 116/59
[2017-11-15 16:57] VITALS: BP 126/62
== END 2017-11-15 20:12 | disposition hospice, home (50) | DRG 432 ==
LOC: ER 10:02 → EDBD 10:02 → OVERFLOW 10:03 → TELE-WESTW 11-13 14:23
PROVIDERS: ADMIT Family Medicine; ATTEND Internal Medicine
PROC: 30233R1 Transfusion of Nonautologous Platelets into Peripheral Vein, Percutaneous Approach (ICD-10-PCS; principal; 2017-11-13)
PROC: 0W9G3ZZ Drainage of Peritoneal Cavity, Percutaneous Approach (ICD-10-PCS; 2017-11-13)
PROC: 30233N1 Transfusion of Nonautologous Red Blood Cells into Peripheral Vein, Percutaneous Approach (ICD-10-PCS; 2017-11-14)
DX: K70.40 Alcoholic hepatic failure without coma (principal); J18.9 Pneumonia, unspecified organism; E43 Unspecified severe protein-calorie malnutrition; K76.7 Hepatorenal syndrome; N17.0 Acute kidney failure with tubular necrosis; K83.1 Obstruction of bile duct; E72.20 Disorder of urea cycle metabolism, unspecified; D61.818 Other pancytopenia; D68.9 Coagulation defect, unspecified; E87.1 Hypo-osmolality and hyponatremia; K76.6 Portal hypertension; F32.9 Major depressive disorder, single episode, unspecified; F41.9 Anxiety disorder, unspecified; E87.5 Hyperkalemia; I12.9 Hypertensive chronic kidney disease with stage 1 through stage 4 chronic kidney disease, or unspecified chronic kidney disease; N18.3 Chronic kidney disease, stage 3 (moderate); D69.6 Thrombocytopenia, unspecified; E78.5 Hyperlipidemia, unspecified; D63.8 Anemia in other chronic diseases classified elsewhere; E87.6 Hypokalemia; G40.909 Epilepsy, unspecified, not intractable, without status epilepticus; K21.9 Gastro-esophageal reflux disease without esophagitis; K70.31 Alcoholic cirrhosis of liver with ascites; Z51.5 Encounter for palliative care; Z82.0 Family history of epilepsy and other diseases of the nervous system; Z82.49 Family history of ischemic heart disease and other diseases of the circulatory system; Z85.3 Personal history of malignant neoplasm of breast; Z99.81 Dependence on supplemental oxygen; Z79.899 Other long term (current) drug therapy; Z85.00 Personal history of malignant neoplasm of unspecified digestive organ
CPT/HCPCS: 10022; 36415; 51702; 70450; 71045; 76705; 76775; 76942; 80048; 80053; 80307; 80320; 81001; 82140; 82570; 82962; 83036; 83605; 83735; 84100; 84132; 84300; 84443; 84484; 85007; 85014; 85018; 85027; 85610; 85730; 86850; 86900; 86901; 86920; 87040; 87081; 93005; 94644; 94761; 96361; 96365; 96375; 99291; A6257; C9113; J0610; J0696; J1815; J7060